=== PATIENT | female | born 1975 | race Two or more races ===

== ENCOUNTER 2024-06-11 20:10 | Emergency (ER) | payer MEDICAID, OTHER ==
[~2024-06-11] VITALS: Ht 157.5 cm; Wt 103.1 kg
[2024-06-11] MEDS: methylPREDNISolone SOD SUCC 125 MG/2 ML VL IM ONE (21:00)
[2024-06-11] MEDS ORDERED: NAP500T PO (21:36)
[2024-06-11 23:43] VITALS: BP 130/77; TEMP 97.7
[2024-06-11] MEDS: KETOROLAC TROMETH 30 MG/ML 1ML VIAL IM ONE (23:50)
[2024-06-12 00:11] VITALS: PULSE 76; RESP 16; O2SAT 93
== END 2024-06-12 00:14 | disposition home or self-care (01) ==
LOC: ER 20:10
DX: R60.0 Localized edema (principal); M79.672 Pain in left foot; M25.572 Pain in left ankle and joints of left foot; M79.652 Pain in left thigh; I10 Essential (primary) hypertension
CPT/HCPCS: 93971; 96372; 99285; J1885; J2919

== ENCOUNTER 2024-10-05 06:10 | Inpatient (IN) | payer MEDICAID ==
[2024-10-05] VITALS (7 sets, daily range): BP systolic 112–140; BP diastolic 61–81; PULSE 48–72; RESP 17–19; TEMP 97.7–98; O2SAT 92–96
[~2024-10-05] VITALS: Ht 157.5 cm; Wt 102.6 kg
[~2024-10-05 06:10] MED LIST: NAP500T PO
--- NOTE | 2024-10-05 06:37 | ECG ---
[facility] Test Date: 2024-10-05 Test Time: 06:17:52 Pat Name: BERNADETTE ZARATE Department: ed Room: [address] [place] [address] Gender: F Bag Printer: ed : [id number] Requested By: HOLLIS ROSS Order Number: [id number] Reading MD: Ron Christine Measurements Intervals [place] Rate: 47 P: 28 [place]: 130 QRS: 73 QRSD: 105 T: 44 QT: 486 QTc: 430 Interpretive Statements Sinus bradycardia Electronically Signed On 10-05-2024 13:17:51 PST by Ron Christine Please click the below link to view image of tracing.
--- NOTE | 2024-10-05 06:38 | ED.PDOC ---
History of Present Illness HPI Comments 48 year old female presents to the ED with a chief complaint of dizziness onset today at 03:00. Patient states she woke up experiencing dizziness as well as chest tightness, shortness of breath. She noticed dizziness worsens with taking deep breaths. PMHx of HTN, HLD. Patient denies abdominal pain, nausea, vomiting, diarrhea, dysuria, hematuria. No other symptoms or modifying factors present at this time. Time Seen by MD: 06:29 Reviewed Notes: Medications, Allergies Allergies: Coded Allergies: NO KNOWN ALLERGIES (Unverified , 06/11/24) Home Meds Active Scripts Naproxen (NAPROSYN TABLET) 500 Mg Tb, 1 TAB PO BID PRN, #60 TAB 1 Refill Prov:MARIAN GUERRA 06/11/24 Information Source: Patient Mode of Arrival: Ambulatory Severity: Moderate Timing: Hours Duration: Since onset Prehospital treatment: None Past Medical History PAST MEDICAL HISTORY: High Lipids, HTN Surgical History: Cholecystectomy LEGISLATIVE AIDE History: No Pertinent LEGISLATIVE AIDE History Family History Family History: Unknown Social History Smoker: Non-Smoker Alcohol: Denies ETOH Use Drugs: Denies Drug Use Lives In: Home Constitutional: denies: chills, diaphoresis, fatigue, fever, malaise, sweats, weakness, others EENTM: denies: blurred vision, double vision, ear bleeding, ear discharge, ear drainage, ear pain, ear ringing, eye pain, eye redness, hearing loss, mouth pain, mouth swelling, nasal discharge, nose bleeding, nose congestion, nose pain, photophobia, tearing, throat pain, throat swelling, voice changes, others Respiratory: reports: shortness of breath; denies: cough, hemoptysis, orthopnea, SOB at rest, SOB with excertion, stridor, wheezing, others Cardiovascular: reports: chest pain; denies: dizzy spells, diaphoresis, Dyspnea on exertion, edema, irregular heart beat, left arm pain, lightheadedness, pa lpitations, PND, syncope, others Gastrointestinal: denies: abdomen distended, abdominal pain, blood streaked bowels, constipated, diarrhea, dysphagia, difficulty swallowing, hematemesis, melena, nausea, poor appetite, poor fluid intake, rectal bleeding, rectal pain, vomiting, others Genitourinary: denies: abnormal vagina bleeding, burning, dyspareunia, dysuria, flank pain, frequency, hematuria, incontinence, pain, , vagina discharge, urgency, others Neurological: reports: dizziness; denies: fainting, headache, left sided numbness, left sided weakness, numbness, paresthesia, pre-existing deficit, right sided numbness, right sided weakness, seizure, speech problems, tingling, tremors, weakness, others Musculoskeletal: denies: back pain, gout, joint pain, joint swelling, muscle pain, muscle stiffness, neck pain, others Integumetry: denies: bruises, change in color, change in hair/nails, dryness, laceration, lesions, lumps, rash, wounds, others Allergic/Immunocompromised: denies: Difficulty Healing, Frequent Infections, Hives, Itching, others Hematologic/Lymphatic: denies: anemia, blood clots, easy bleeding, easy bruising, swollen glands, others Endocrine: denies: excessive hunger, excessive sweating, excessive thirst, excessive urination, flushing, intolerance to cold, intolerance to heat, unexplained weight gain, unexplained weight loss, others Psychiatric: denies: anxiety, bipolar disorder, depression, hopeless, panic disorder, schizophrenia, sleepless, suicidal, others All Other Systems: Reviewed and Negative Physical Exam General Appearance: No Apparent Distress, Normal HEENT: Normal ENT Inspection, Pharynx Normal, TMs Normal Neck: Full Range of Motion, Non-Tender, Normal, Normal Inspection Respiratory: Chest Non-Tender, Lungs Clear, No Accessory Muscle Use, No Respiratory Distress, Normal Breath Sounds Cardiovascular: No Edema, No JVD, No Murmur, No Gallop, Normal Peripheral Pulses, Regular Rate/Rhythm Breast Exam: Deferred Gastrointestinal: No Organomegaly, Non Tender, No Pulsatile Mass, Normal Bowel Sounds, Soft Genitalia: Deferred Pelvic: Deferred Rectal: Deferred Extremities: No calf tenderness, Normal capillary refill, Normal inspection, No rmal range of motion, Non-tender, No pedal edema Musculoskeletal : Apperance: Normal Neurologic: Alert, mail list librarian II-XII nml as Tested, No Motor Deficits, Normal Affect, Normal Mood, No Sensory Deficits Cerebellar Function: Normal Reflexes: Normal Skin: Dry, Normal Color, Warm Lymphatic: No Adenopathy Was a procedure done? Was a procedure done?: No EKG EKG : Pulse Rate (adult): 47 Cardiac Rhythm: SB (47) Block: None ST: Normal Comments sinus bradycardia with rate 47 Differential Dx Considerations may include: Differential diagnosis considered includes COVID-19, influenza, stroke, electrolyte abnormalities, anemia, UTI X-Ray, Labs, Meds, VS Vital Signs Date Time Temp Pulse Resp B/P (MAP) Pulse Ox O2 Delivery O2 Flow Rate FiO2 10/05/24 07:29 98.5 56 19 122/64 (83) 97 98.5 10/05/24 07:29 56 10/05/24 07:15 10/05/24 06:38 98.0 52 18 122/57 (78) 99 10/05/24 06:38 130 10/05/24 06:17 47 Lab Test 10/05/24 07:39 10/05/24 06:34 Range/Units Urine Color Light-yellow Yellow Urine Clarity Clear Clear Urine pH 5.5 5.0-9.0 Urine Specific [place] 1.013 1.001-1.035 Urine Protein Negative Negative Urine Ketones Negative Negative Urine Blood Trace H Negative /uL Urine Nitrite Negative Negative Urine Bilirubin Negative Negative Urine Urobilinogen Normal Negative mg/dL Urine Leukocyte Esterase Negative Negative /uL Urine RBC None seen 0 - 4 /hpf Urine Microscopic WBC 1 0-5 /HPF Urine Squamous Epithelial Cells Few <5 /hpf Urine Bacteria None seen None Seen /hpf Urine Glucose Normal Normal mg/dL Influenza Type A Antigen Negative Negative Influenza Type B Antigen Negative Negative White Blood Count 8.3 4.4-10.8 10^3/uL Red Blood Count 5.25 H 4.0-5.20 10^6/uL Hemoglobin 15.4 12.2-16.2 g/dL Hematocrit 46.3 H 36.0-46.0 % Mean Corpuscular Volume 88.3 80.0-100.0 fL Mean Corpuscular Hemoglobin 29.3 28.0-32.0 pg Mean Corpuscular Hemoglobin Concent 33.2 32.0-36.0 g/dL Red Cell Distribution Width 14.1 11.8-14.3 % Platelet Count 288 140-450 10^3/uL Mean Platelet Volume 9.2 6.9-10.8 fL Neutrophils (%) (Auto) 41.6 37.0-80.0 % Lymphocytes (%) (Auto) 43.9 10.0-50.0 % Monocytes (%) (Auto) 6.9 0.0-12.0 % Eosinophils (%) (Auto) 6.9 0.0-7.0 % Basophils (%) (Auto) 0.7 0.0-2.0 % Neutrophils # (Auto) 3.4 1.6-8.6 10 ^3/uL Lymphocytes # (Auto) 3.6 0.4-5.4 10 ^3/uL Monocytes # (Auto) 0.6 0-1.3 10 ^3/uL Eosinophils # (Auto) 0.6 0-0.8 10 ^3/uL Basophils # (Auto) 0.1 0-0.2 10 ^3/uL Nucleated Red Blood Cells 0.1 % Prothrombin Time 10.3 9.3-11.8 sec Prothrombin Time INR 0.97 0.9-1.15 Activated Partial Thromboplast Time 27.7 24.5-34.5 SEC D-Dimer, Quantitative 0.20 0.0-0.49 mg/L FEU Sodium Level 139 136-145 mmol/L Potassium Level 3.8 3.5-5.1 mmol/L Chloride Level 103 98-107 mmol/L Carbon Dioxide Level 26 20-31 mmol/L Anion Gap 10 5-15 Blood Urea Nitrogen 12 9-23 mg/dL Creatinine 0.63 0.550-1.02 mg/dL Glomerular Filtration Rate Calc 110 >90 mL/min BUN/Creatinine Ratio 19.0 10.0-20.0 Serum Glucose 106 74-106 mg/dL Calcium Level 9.7 8.7-10.4 mg/dL Magnesium Level 2.0 1.6-2.6 mg/dL Total Bilirubin 0.3 0.2-1.0 mg/dL Aspartate Amino Transferase (AST) 30 13-40 U/L Alanine Aminotransferase (ALT) 47 H 7-40 U/L Alkaline Phosphatase 85 46-116 U/L Troponin I High Sensitivity 4 </=34 ng/L B-Type Natriuretic Peptide 15.97 0-100 pg/mL Total Protein 6.5 5.7-8.2 g/dL Albumin 4.5 3.2-4.8 g/dL X-Ray, Labs, Meds, VS Comment This 44-year-old female presents secondary to dizziness and chest tightness with deep inspiration. Here, her workup was significant for a heart rate in the 40s. I am concerned the patient's dizziness/lightheadedness secondary to symptomatic bradycardia. The patient will be admitted for further workup management of her symptomatic bradycardia. Differential diagnosis considered includes COVID-19, influenza, stroke, electrolyte abnormalities, anemia, UTI Time of 1ST Reevaluation: 06:59 Reevaluation 1ST: Unchanged Patient Education/Counseling: Diagnosis, Treatment, Prognosis Family Education/Counseling: No Family Present Additional Information The following tests were ordered, and results were reviewed by me:EKG -X3 RAPID INFLUENZA A&B, I discussed treatment and results with medical personnel and patient Departure 1 Departure Time of Disposition: 08:37 Impression: Primary Impression: Chest pain Additional Impressions: Dizziness Bradycardia Disposition: 09 ADMITTED INPATIENT Condition: Fair Critical Care Note Critical Care Time?: No Stability Stability form required: No Heart Score Heart Score: Heart Score Response (Comments) Value History N/A 0 EKG N/A 0 Age N/A 0 Risk Factors N/A 0 Troponin N/A 0 Total 0 I personally scribed for HOLLIS ROSS MD ([email or web address]) on 10/05/24 at 06:38. Electronically submitted by Sobeida Maria ([email or web address]). I personally scribed for HOLLIS ROSS MD ([email or web address]) on 10/05/24 at 07:13. Electr onically submitted by Sobeida Maria ([email or web address]). I personally scribed for HOLLIS ROSS MD ([email or web address]) on 10/05/24 at 07:15. Electronically submitted by Sobeida Maria ([email or web address]). HOLLIS ROSS MD Oct 05, 2024 06:38
[2024-10-05 07:54] LABS: Urine Bacteria None Seen /hpf (None Seen)
[2024-10-05 07:55] LABS: Basophils # (auto) 0.1 10 ^3/uL (0-0.2); Basophils % (auto) 0.7 % (0.0-2.0); Eosinophils # (auto) 0.6 10 ^3/uL (0-0.8); Eosinophils % (auto) 6.9 % (0.0-7.0); Hematocrit 46.3 % (36.0-46.0); Hemoglobin 15.4 g/dL (12.2-16.2); Lymphocytes # (auto) 3.6 10 ^3/uL (0.4-5.4); Lymphocytes % (auto) 43.9 % (10.0-50.0); Mean Corpuscular Hemoglobin 29.3 pg (28.0-32.0); Mean Corpuscular Hgb Conc. 33.2 g/dL (32.0-36.0); Mean Corpuscular Volume 88.3 fL (80.0-100.0); Monocytes # (auto) 0.6 10 ^3/uL (0-1.3); Monocytes % (auto) 6.9 % (0.0-12.0); Neutrophils # (auto) 3.4 10 ^3/uL (1.6-8.6); Neutrophils % (auto) 41.6 % (37.0-80.0); Nucleated Red Blood Cells % 0.1 %; Platelet Count (auto) 288 10^3/uL (140-450); Red Blood Cells 5.25 10^6/uL (4.0-5.20); Red Cell Distribution Width 14.1 % (11.8-14.3); White Blood Cell 8.3 10^3/uL (4.4-10.8)
[2024-10-05 07:59] LABS: Urine Blood TRACE /uL (Negative); Urine Clarity Clear (Clear); Urine Color Light-Yellow (Yellow); Urine Protein, UAD Negative (Negative); Urine Specific Gravity 1.013 (1.001-1.035); Urine Squamous Epithelial Cell FEW /hpf (<5); Urine Urobilinogen Normal (Negative); Urine WBC 1 /HPF (0-5); Urine pH 5.5 (5.0-9.0)
[2024-10-05 08:04] LABS: Albumin 4.5 g/dL (3.2-4.8); Alkaline Phosphatase 85 U/L (46-116); Anion Gap 10 (5-15); Aspartate Aminotransferase 30 U/L (13-40); Blood Urea Nitrogen 12 mg/dL (9-23); Calcium 9.7 mg/dL (8.7-10.4); Carbon Dioxide 26 mmol/L (20-31); Chloride 103 mmol/L (98-107); Potassium 3.8 mmol/L (3.5-5.1); Sodium 139 mmol/L (136-145)
[2024-10-05 08:05] LABS: Total Protein 6.5 g/dL (5.7-8.2)
--- NOTE | 2024-10-05 08:05 | DVH ---
EXAM: XR Chest, 1 View CLINICAL INDICATION: chest pain TECHNIQUE: Frontal view of the chest. COMPARISON: None FINDINGS: LUNGS AND PLEURAL SPACES: Unremarkable. No consolidation. No pneumothorax. HEART: Unremarkable. No cardiomegaly. MEDIASTINUM: Unremarkable. Normal mediastinal contour. BONES/JOINTS: Unremarkable. No acute fracture. OTHER FINDINGS: . None. . IMPRESSION: No acute cardiopulmonary process.
[2024-10-05 08:06] LABS: Alanine Aminotransferase 47 U/L (7-40); Bilirubin, Total 0.3 mg/dL (0.2-1.0); Glucose 106 mg/dL (74-106)
[2024-10-05 08:08] LABS: INR 0.97 (0.9-1.15); Partial Thromboplastin Time 27.7 SEC (24.5-34.5); Prothrombin Time 10.3 sec (9.3-11.8)
[2024-10-05 08:16] LABS: Rapid Influenza A Negative (Negative); Rapid Influenza B Negative (Negative)
[2024-10-05] MEDS ORDERED: ONDANSETRON HCL 4 MG/2 ML VIAL IV PRN (11:15)
[2024-10-05] MEDS ORDERED: NITROGLYCERIN 0.4 MG SL TAB SL PRN (11:15)
[2024-10-05] MEDS ORDERED: MORPHINE SULFATE INJ 2 MG/ml SYRG IV PRN (11:15)
--- NOTE | 2024-10-05 11:15 | DVHHP2 ---
History of Present Illness Reason for Visit: Chest tightness History of Present Illness Itzel Feng is a 48-year-old female with past medical history of hypertension, hyperlipidemia, uterus ablation, and cholecystectomy who presents to the ED for chest tightness and dizziness with associated shortness of breath since 3:00 a.m. this morning. Patient reports that she was sleeping in bed and suddenly felt midsternal chest tightness that does not radiate anywhere. Patient reports that this morning she took her blood pressure read her pulse a 48 and decided to take all her medications which includes beta-blockers and antihypertensives. Patient reports that after she took the medications her heart rate was 51. Patient denies any abdominal pain, nausea, vomiting, diarrhea, fever, chills cousin recent sick contacts, and recent injury. Patient reports that she was never informed by her primary to hold her medications if her heart rate or blood pressure was below a certain parameter. Cardiovascular: HTN, hyperipidemia Past Surgical History: Cholecystectomy, Other (Uterine ablation) Family History: Hyperlipidemia, Hypertension, Other (Mom with hypertension, hyperlipidemia, and pacemaker) Smoke: No ALCOHOL: none Drugs: None Lives: with Family Domestic Violence: Neg Review of Systems Constitutional: Yes: Other (Dizziness); No: Fever, Chills, Sweats, Weakness, Malaise Eyes: No: Pain, Vision change, Conjunctivae inflammation, Eyelid inflammation, Other, Redness ENT: No: Ear pain, Ear discharge, Nose pain, Nose discharge, Nose congestion, Mouth pain, Mouth swelling, Throat pain, Throat swelling, Other Respiratory: Shortness of breath; No: Cough, Dry, SOB with excertion, Wheezing, Hemoptysis, Pleuritic Pain, Sputum, Wheezing, Other Cardiovascular: Chest Pain; No: Palpitations, Orthopnea, Paroxysmal Noc. Dyspnea, Edema, Lt Headedness, Other Gastrointestinal: No: Nausea, Vomiting, Abdominal Pain, Diarrhea, Constipation, Melena, Hematochezia, Other Genitourinary: No Dysuria, No Frequency, No Incontinence, No Hematuria, No Retention, No Other Musculoskeletal: No: other, neck pain, shoulder pain, arm pain, back pain, hand pain, leg pain, foot pain Skin: No: Rash, Lesions, Jaundice, Bruising, Other Neurological: No: Weakness, Numbness, Incoordination, Change in speech, Confusion, Seizures, Other Allergies: Coded Allergies: NO KNOWN ALLERGIES (Unverified , 06/11/24) Medications Current Medications Medications Dose Ordered Sig/[place] Route Start Time Stop Time Status Last Admin Dose Admin Ondansetron HCl 4 mg Q4HP PRN IV 10/05/24 11:15 UNV Acetaminophen 650 mg Q6HP PRN PO 10/05/24 11:15 UNV Nitroglycerin 0.4 mg Q5MINP PRN SL 10/05/24 11:15 UNV Morphine Sulfate 2 mg Q30M PRN IV 10/05/24 11:15 UNV Exam Vital Signs Vital Signs Date Time Temp Pulse Resp B/P (MAP) Pulse Ox O2 Delivery O2 Flow Rate FiO2 10/05/24 09:57 51 17 134/62 (86) 99 10/05/24 07:29 98.5 98.5 General Appearance: Alert, Oriented X3, Cooperative, No acute distress HEENT: Atraumatic, PERRLA, EOMI, Mucous membr. moist/pink Respiratory: Clear to auscultation, Normal air movement Cardiovascular: Normal S1, Normal S2, No murmurs Abdominal: Normal bowel sounds, Soft, No tenderness, No hepatospenomegaly, No masses Extremities: No clubbing, No cyanosis, No edema, Normal pulses, No tenderness/swelling Skin: No rashes, No breakdown, No significant lesion Neuro: Normal gait, Normal speech, Strength at 5/5 X4 ext, Normal tone, Sensation intact Psych/Mental Status: Mental status NL, Mood NL Labs/Xrays Labs Test 10/05/24 07:39 10/05/24 06:34 Range/Units Urine Color Light-yellow Yellow Urine Clarity Clear Clear Urine pH 5.5 5.0-9.0 Urine Specific [place] 1.013 1.001-1.035 Urine Protein Negative Negative Urine Ketones Negative Negative Urine Blood Trace H Negative /uL Urine Nitrite Negative Negative Urine Bilirubin Negative Negative Urine Urobilinogen Normal Negative mg/dL Urine Leukocyte Esterase Negative Negative /uL Urine RBC None seen 0 - 4 /hpf Urine Microscopic WBC 1 0-5 /HPF Urine Squamous Epithelial Cells Few <5 /hpf Urine Bacteria None seen None Seen /hpf Urine Glucose Normal Normal mg/dL Influenza Type A Antigen Negative Negative Influenza Type B Antigen Negative Negative White Blood Count 8.3 4.4-10.8 10^3/uL Red Blood Count 5.25 H 4.0-5.20 10^6/uL Hemoglobin 15.4 12.2-16.2 g/dL Hematocrit 46.3 H 36.0-46.0 % Mean Corpuscular Volume 88.3 80.0-100.0 fL Mean Corpuscular Hemoglobin 29.3 28.0-32.0 pg Mean Corpuscular Hemoglobin Concent 33.2 32.0-36.0 g/dL Red Cell Distribution Width 14.1 11.8-14.3 % Platelet Count 288 140-450 10^3/uL Mean Platelet Volume 9.2 6.9-10.8 fL Neutrophils (%) (Auto) 41.6 37.0-80.0 % Lymphocytes (%) (Auto) 43.9 10.0-50.0 % Monocytes (%) (Auto) 6.9 0.0-12.0 % Eosinophils (%) (Auto) 6.9 0.0-7.0 % Basophils (%) (Auto) 0.7 0.0-2.0 % Neutrophils # (Auto) 3.4 1.6-8.6 10 ^3/uL Lymphocytes # (Auto) 3.6 0.4-5.4 10 ^3/uL Monocytes # (Auto) 0.6 0-1.3 10 ^3/uL Eosinophils # (Auto) 0.6 0-0.8 10 ^3/uL Basophils # (Auto) 0.1 0-0.2 10 ^3/uL Nucleated Red Blood Cells 0.1 % Prothrombin Time 10.3 9.3-11.8 sec Prothrombin Time INR 0.97 0.9-1.15 Activated Partial Thromboplast Time 27.7 24.5-34.5 SEC D-Dimer, Quantitative 0.20 0.0-0.49 mg/L FEU Sodium Level 139 136-145 mmol/L Potassium Level 3.8 3.5-5.1 mmol/L Chloride Level 103 98-107 mmol/L Carbon Dioxide Level 26 20-31 mmol/L Anion Gap 10 5-15 Blood Urea Nitrogen 12 9-23 mg/dL Creatinine 0.63 0.550-1.02 mg/dL Glomerular Filtration Rate Calc 110 >90 mL/min BUN/Creatinine Ratio 19.0 10.0-20.0 Serum Glucose 106 74-106 mg/dL Calcium Level 9.7 8.7-10.4 mg/dL Magnesium Level 2.0 1.6-2.6 mg/dL Total Bilirubin 0.3 0.2-1.0 mg/dL Aspartate Amino Transferase (AST) 30 13-40 U/L Alanine Aminotransferase (ALT) 47 H 7-40 U/L Alkaline Phosphatase 85 46-116 U/L Troponin I High Sensitivity 4 </=34 ng/L B-Type Natriuretic Peptide 15.97 0-100 pg/mL Total Protein 6.5 5.7-8.2 g/dL Albumin 4.5 3.2-4.8 g/dL EXAM: XR Chest, 1 View CLINICAL INDICATION: chest pain TECHNIQUE: Frontal view of the chest. COMPARISON: None FINDINGS: LUNGS AND PLEURAL SPACES: Unremarkable. No consolidation. No pneumothorax. HEART: Unremarkable. No cardiomegaly. MEDIASTINUM: Unremarkable. Normal mediastinal contour. BONES/JOINTS: Unremarkable. No acute fracture. OTHER FINDINGS: . None. . IMPRESSION: No acute cardiopulmonary process. Assessment/Plan Assessment/Plan Assessment/Plan: Chest tightness with bradycardia Labs UA EKG Troponin negative BNP D-dimer PT/PTT Mag level Chest x-ray noted Flu negative TSH Lipid panel UDS Hemoglobin A1c Echo ordered A.m. labs Cardiology consult Chronic hypertension Continue home medications Chronic hyperlipidemia Continue home medications FEN/PPX cardiac diet hl DVT prophylaxis not indicated patient ambulating PUD prophylaxis -continue home medication, famotidine home medications reconciled discussed plan of care with patient and nurse Admit to tele Plan discussed with: Patient My Orders Orders - JADE COOK [employer]MICAL CELL CHANGER Procedure Category Date Status Time * Cardiology Consult CONS 10/05/24 Transmitted 11:03 Admit ADMIT 10/05/24 Transmitted 11:03 Allergies LIDYA 10/05/24 In Process 11:03 Code Status CODE 10/05/24 Transmitted 11:03 Ondansetron Hcl PHA 10/05/24 Logged (Zofran) 11:15 Complete Blood Count LAB 10/06/24 Verified 04:00 Comprehensive LAB 10/06/24 Verified Metabolic Panel 04:00 Cardiac DIET 10/05/24 Transmitted Diet-2gna,Lofat,Lochol Lunch Acetaminophen Tablet PHA 10/05/24 Logged (Tylenol Tablet) 11:15 Nitroglycerin PHA 10/05/24 Logged Sublingual (Ntrostat 11:15 Morphine Sulfate PHA 10/05/24 Logged Injection 11:15 Stat Ekg For Chest [facility] 10/05/24 In Process Pain 11:03 Notify Of Changes [facility] 10/05/24 In Process From Base 11:03 Owner Professional Engineer For [facility] 10/05/24 In Process 24 Hours 11:03 Emergency Dysrhythmia [facility] 10/05/24 In Process Protocol 11:03 Rhythm Strips Once [facility] 10/05/24 In Process Every Shift 11:03 Oxygen By Nasal RT 10/05/24 Transmitted Cannula 11:03 * Cardiology Consult CONS 10/05/24 Transmitted 11:06 Date of Service: Oct 05, 2024 Billing Provider: JADE COOK Common Visit Codes: [id number] INP/OBS CARE (HIGH) JADE COOK Oct 05, 2024 11:15
[2024-10-05 12:18] LABS: Amphetamine Screen, Urine Neg (NEGATIVE); Barbiturate Scree,Urine Neg (NEGATIVE); Benzodiazephine Screen, Urine Neg (NEGATIVE); Cannabinoid Screen, Urine Neg (NEGATIVE); Cocaine Screen, Urine Neg (NEGATIVE); Opiate Scree,Urine Neg (NEGATIVE); Phencyclidine Screen, Urine Neg (NEGATIVE)
[2024-10-05] MEDS ORDERED: HYDR25TA5 (12:44)
[2024-10-05] MEDS ORDERED: ATEN50TA PO (12:44)
[2024-10-05] MEDS ORDERED: ATOR20TA50 (12:44)
[2024-10-05] MEDS ORDERED: TRAZ-227 PO (12:44)
[2024-10-05] MEDS ORDERED: OXYB5TAB14 PO (12:44)
[2024-10-05] MEDS ORDERED: FAMO-12 PO (12:44)
--- NOTE | 2024-10-05 17:01 | DVHSR ---
APPROVED REPORT EXAM: Two-dimensional and M-mode echocardiogram with Doppler and color Doppler. Blood Pressure: 134/62 mmHg INDICATION chest tightness RISK FACTORS Obesity: Height: 5'2, Weight: 221 DIMENSIONS LVDd3.7 (3.8-5.7cm)LA (2D)4.3 (1.9-4.0cm)Aortic Root3.1 (2.0-3.7cm) LVDs2.7 (2.5-4.0cm)LA (MM) (1.9-4.0cm)Aortic Cusp Exc2.0 (1.5-2.0cm) EF (%) 55.0 (55-70%)Rt. Atrium3.6 (1.9-4.0cm)Asc. Aorta2.8 cm IVSd1.2 (0.7-1.1cm)RV (D)3.8 (1.8-2.4cm) PWd1.0 (0.7-1.1cm) Mitral Valve MitralMitral Stenosis E wave0.95m/sMV Mean GR.mmHg A wave0.91m/sMV Peak GR.54mmHg E/A ratio1.02D MVAcm2 DECEL [id number] 1/2 Timems Aortic Valve Aortic ValveAortic Stenosis V10.93m/Slade Mean GR.3mmHg V21.19m/Slade Peak GR.6mmHg LVOT Diameter2.6 (1.8-2.4cm)Doppler AVA4.15cm2 Pulmonic Valve V20.78m/s Tricuspid Valve TR Velocity2.19m/s [id number] LEFT VENTRICLE The left ventricle is normal size. There is mild asymmetric left ventricular hypertrophy. Left ventricle systolic function is borderline, LVEF is 50-55%. Normal wall motion. RIGHT VENTRICLE The right ventricle is normal size. The right ventricular systolic function is normal. ATRIA The left atrium is mildly dilated. The right atrium size is normal. MITRAL VALVE The mitral valve is grossly normal. There is no mitral valve regurgitation noted. PULMONIC VALVE The pulmonic valve is not well visualized. There is no pulmonic valvular regurgitation. TRICUSPID VALVE The tricuspid valve is grossly normal. There is mild tricuspid regurgitation. AORTIC VALVE The aortic valve is trileaflet. No aortic regurgitation is present. GREAT VESSELS The aortic root is normal size. PERICARDIAL EFFUSION No evidence of pericardial effusion. Conclusion The left ventricle is normal size. There is mild asymmetric left ventricular hypertrophy. Left ventri leigha systolic function is borderline, LVEF is 50-55%. The right ventricular systolic function is normal. The left atrium is mildly dilated. No significant valvular abnormalities. No evidence of pericardial effusion.
--- NOTE | 2024-10-05 17:45 | DVHINCON2 ---
Date Seen: Oct 05, 2024 Referring Physician ELEANOR Moralez Reason for Consultation Bradycardia History of Present Illness This is a 48-year-old female patient who presents to the emergency room with chief complaint of bradycardia and chest pain. Patient reports that at approximately 3:00 a.m. this morning she woke up feeling dizzy. She decided to check her blood pressure which she noticed was in normal range but happened to notice that her heart rate was sustaining in the low 50s. She reports at this time she developed chest pain which she describes as pressure-like in nature, substernal, and nonradiating. She denies any associated symptoms. She denies any aggravating or alleviating factors. She decided to come to the emergency room for further evaluation. At time of assessment, she denies any chest pain. Initial twelve lead electrocardiogram reveals sinus bradycardia. Significant past medical history includes hypertension, hyperlipidemia anxiety, and obesity. The patient denies following up with Cardiology in the outpatient setting. She does mentioned that she takes atenolol at home for blood pressure and took a dose this morning even after noticing that her heart rate was in the 50s. Of note, the patient does report a significant family history mentioning that her brother had a myocardial infarction at 45 years old. Past Medical History Past medical history reviewed. No other significant than mentioned above. Past Surgical History Cholecystectomy Family History: Diabetes mellitus G8 MOTHER FH: breast cancer G8 MOTHER FH: skin cancer G8 MOTHER FH: thyroid condition Hypertension G8 MOTHER Osteoarthritis G8 MOTHER Thyroid disease G8 MOTHER Family History Family history reviewed. Social History Denies the use of tobacco, alcohol or illicit drugs. Allergies: Coded Allergies: NO KNOWN ALLERGIES (Unverified , 06/11/24) Home Meds Active Scripts Naproxen (NAPROSYN TABLET) 500 Mg Tb, 1 TAB PO BID PRN, #60 TAB 1 Refill Prov:MARIAN GUERRA 06/11/24 Reported Medications Trazodone Hcl (Trazodone Hcl) 50 Mg Tab, 1 TAB PO 10/05/24 Atorvastatin Calcium (ATORVASTATIN CALCIUM) 20 Mg Tab, 1 DAILY 10/05/24 Famotidine (Famotidine) 20 Mg Tab, 1 TAB PO BID 10/05/24 Hctz (Hydrochlorothiazide) 25 Mg Tab, 1 DAILY 10/05/24 Atenolol (Atenolol) 50 Mg Tab, 1 TAB PO DAILY 10/05/24 Oxybutynin Chloride (Oxybutynin Chloride) 5 Mg Tab, 5 MG PO DAILY 10/05/24 Home Meds Home medications reviewed. Current Medications Current Medications Medications (Trade) Dose Ordered Sig/Salvador Route PRN Reason Start Time Stop Time Status Last Admin Ondansetron HCl (Zofran) 4 mg Q4HP PRN IV NAUSEA / VOMITING 10/05/24 11:15 Acetaminophen (Tylenol Tablet) 650 mg Q6HP PRN PO PAIN SCALE 1-3 OR TEMP>100.4 10/05/24 11:15 Nitroglycerin (Ntrostat Sublingual) 0.4 mg Q5MINP PRN SL FOR CHEST PAIN 10/05/24 11:15 Morphine Sulfate 2 mg Q30M PRN IV FOR CHEST PAIN 10/05/24 11:15 Review of Systems Constitutional: No symptom reported Ears, Nose, & Throat: No symptom reported Eyes: No symptom reported Neurological: Dizziness Pulmonary/Respiratory: No symptoms reported Cardiovascular: Chest pain Gastrointestinal: No symptom reported Genitourinary: No symptom reported Musculoskeletal: No symptom reported Skin: No symptom reported Psychiatric: No symptom reported Endocrine: No symptom reported Hematologic/Lymphatic: No symptom reported Vital Signs Vital Signs Date Time Temp Pulse Resp B/P (MAP) Pulse Ox O2 Delivery O2 Flow Rate FiO2 10/05/24 12:40 48 17 96 Room Air* 0 21 10/05/24 11:32 98.2 123/84 (97) 98.2 Physical Exam General Appearance: Cooperative. Well-developed. Well-nourished. No acute distress. Pulmonary/Respiratory: Clear, bilateral breaths sounds. Cardiovascular/Chest: Regular rate and rhythm. Peripheral Pulses: 2+ Radial (R). 2+ Radial (L). 2+ Pedal (R). 2+ Pedal (L) Abdominal Exam: Normal bowel sounds. Ankle Exam: Negative ankle edema Lower extremities: Negative lower extremity edema Neuro/Mental Status: A/OX4, coherent. Thoughts/Psych: Normal thought pattern. Appropriate mood and affect. Good judgment and insight. Appearance: No acute distress. Skin Exam: Normal inspection. Normal color. Warm and dry. Labs/Diagnostic Data Labs Test 10/05/24 08:05 10/05/24 07:39 10/05/24 06:34 Range/Units Urine Color Light-yellow Yellow Urine Clarity Clear Clear Urine pH 5.5 5.0-9.0 Urine Specific [place] 1.013 1.001-1.035 Urine Protein Negative Negative Urine Ketones Negative Negative Urine Blood Trace H Negative /uL Urine Nitrite Negative Negative Urine Bilirubin Negative Negative Urine Urobilinogen Normal Negative mg/dL Urine Leukocyte Esterase Negative Negative /uL Urine RBC None seen 0 - 4 /hpf Urine Microscopic WBC 1 0-5 /HPF Urine Squamous Epithelial Cells Few <5 /hpf Urine Bacteria None seen None Seen /hpf Urine Glucose Normal Normal mg/dL Urine Opiates Screen Neg NEGATIVE Urine Fentanyl Screen Neg NEGATIVE Urine Barbiturates Screen Neg NEGATIVE Urine Phencyclidine Screen Neg NEGATIVE Urine Amphetamines Screen Neg NEGATIVE Urine Benzodiazepines Screen Neg NEGATIVE Urine Cocaine Screen Neg NEGATIVE Urine Cannabinoids Screen Neg NEGATIVE Influenza Type A Antigen Negative Negative Influenza Type B Antigen Negative Negative White Blood Count 8.3 4.4-10.8 10^3/uL Red Blood Count 5.25 H 4.0-5.20 10^6/uL Hemoglobin 15.4 12.2-16.2 g/dL Hematocrit 46.3 H 36.0-46.0 % Mean Corpuscular Volume 88.3 80.0-100.0 fL Mean Corpuscular Hemoglobin 29.3 28.0-32.0 pg Mean Corpuscular Hemoglobin Concent 33.2 32.0-36.0 g/dL Red Cell Distribution Width 14.1 11.8-14.3 % Platelet Count 288 140-450 10^3/uL Mean Platelet Volume 9.2 6.9-10.8 fL Neutrophils (%) (Auto) 41.6 37.0-80.0 % Lymphocytes (%) (Auto) 43.9 10.0-50.0 % Monocytes (%) (Auto) 6.9 0.0-12.0 % Eosinophils (%) (Auto) 6.9 0.0-7.0 % Basophils (%) (Auto) 0.7 0.0-2.0 % Neutrophils # (Auto) 3.4 1.6-8.6 10 ^3/uL Lymphocytes # (Auto) 3.6 0.4-5.4 10 ^3/uL Monocytes # (Auto) 0.6 0-1.3 10 ^3/uL Eosinophils # (Auto) 0.6 0-0.8 10 ^3/uL Basophils # (Auto) 0.1 0-0.2 10 ^3/uL Nucleated Red Blood Cells 0.1 % Prothrombin Time 10.3 9.3-11.8 sec Prothrombin Time INR 0.97 0.9-1.15 Activated Partial Thromboplast Time 27.7 24.5-34.5 SEC D-Dimer, Quantitative 0.20 0.0-0.49 mg/L FEU Sodium Level 139 136-145 mmol/L Potassium Level 3.8 3.5-5.1 mmol/L Chloride Level 103 98-107 mmol/L Carbon Dioxide Level 26 20-31 mmol/L Anion Gap 10 5-15 Blood Urea Nitrogen 12 9-23 mg/dL Creatinine 0.63 0.550-1.02 mg/dL Glomerular Filtration Rate Calc 110 >90 mL/min BUN/Creatinine Ratio 19.0 10.0-20.0 Serum Glucose 106 74-106 mg/dL Hemoglobin A1c 5.9 H <5.7 % A1C Calcium Level 9.7 8.7-10.4 mg/dL Magnesium Level 2.0 1.6-2.6 mg/dL Total Bilirubin 0.3 0.2-1.0 mg/dL Aspartate Amino Transferase (AST) 30 13-40 U/L Alanine Aminotransferase (ALT) 47 H 7-40 U/L Alkaline Phosphatase 85 46-116 U/L Troponin I High Sensitivity 4 </=34 ng/L B-Type Natriuretic Peptide 15.97 0-100 pg/mL Total Protein 6.5 5.7-8.2 g/dL Albumin 4.5 3.2-4.8 g/dL Thyroid Stimulating Hormone (TSH) 2.93 0.55-4.78 uIU/mL Assessment Chest pain, rule out coronary ischemia Sinus bradycardia, likely medication induced Hypertension Hyperlipidemia Prediabetes Anxiety Obesity Plan/Recommendation We will continue with the following plan/recommendations (Dr. Bella): * Echocardiogram reveals EF 50-55% * Discontinue beta-celestino; avoid AV denis blocking agents * BP control * Lipid-lowering agent * Cardiac surveillance * Nuclear stress test Patient seen and examined in the ER holding area with . Given the mj patricia's significant family history and clinical presentation, we will schedule the patient for a nuclear stress test at first availability. In the meantime, avoid all AV denis blocking agents. Thank you for allowing us to care for this patient. Please call with any questions or concerns. Critical care time spent: 40 minutes This medical document was created using an electronic medical record system with voice recognition software and computerized dictation system. Although this document has been carefully reviewed, there might still be some phonetic and typographical errors. Occasional wrong-word or ``sound-alike substitutions may have occurred due to the inherent limitations of voice recognition software. These areas are purely typographical due to imperfections of the software programs and do not reflect any compromise in the patient's medical care. Please read the chart carefully and recognize, using context, where these substitutions have occurred. Plan discussed with: Patient NYHA Physical activity limitations: NA Date of Service: Oct 05, 2024 Billing Provider: AQUILINO MCCOY Cardiology Common Codes: [id number] INP/OBS CARE (High) Cardiology Consultation Codes: [id number] CONSULT <45MIN AQUILINO MCCOY Oct 05, 2024 17:45
[2024-10-05] MEDS: ATORVASTATIN 20 MG TAB PO SCH (21:11)
[2024-10-06] VITALS (8 sets, daily range): BP systolic 110–143; BP diastolic 52–82; PULSE 52–82; RESP 17–18; TEMP 97.7–98.2; O2SAT 91–95
[2024-10-06 06:14] LABS: Basophils # (auto) 0.1 10 ^3/uL (0-0.2); Basophils % (auto) 0.7 % (0.0-2.0); Eosinophils # (auto) 0.3 10 ^3/uL (0-0.8); Eosinophils % (auto) 4.4 % (0.0-7.0); Hematocrit 43.6 % (36.0-46.0); Lymphocytes # (auto) 2.6 10 ^3/uL (0.4-5.4); Mean Corpuscular Hemoglobin 29.8 pg (28.0-32.0); Mean Corpuscular Hgb Conc. 34.3 g/dL (32.0-36.0); Mean Corpuscular Volume 86.9 fL (80.0-100.0); Monocytes # (auto) 0.5 10 ^3/uL (0-1.3); Monocytes % (auto) 6.9 % (0.0-12.0); Neutrophils # (auto) 4.3 10 ^3/uL (1.6-8.6); Nucleated Red Blood Cells % 0.1 %; Platelet Count (auto) 279 10^3/uL (140-450); Red Blood Cells 5.02 10^6/uL (4.0-5.20); White Blood Cell 7.8 10^3/uL (4.4-10.8)
[2024-10-06 06:49] LABS: Albumin 4.1 g/dL (3.2-4.8); Alkaline Phosphatase 67 U/L (46-116); Anion Gap 10 (5-15); Aspartate Aminotransferase 31 U/L (13-40); BUN/Creatinine Ratio 16.4 (10.0-20.0); Blood Urea Nitrogen 11 mg/dL (9-23); Calcium 9.9 mg/dL (8.7-10.4); Carbon Dioxide 27 mmol/L (20-31); Chloride 105 mmol/L (98-107); Glucose 100 mg/dL (74-106); Sodium 142 mmol/L (136-145)
[2024-10-06 06:50] LABS: Bilirubin, Total 0.4 mg/dL (0.2-1.0); Total Protein 6.5 g/dL (5.7-8.2)
[2024-10-06 06:52] LABS: Alanine Aminotransferase 44 U/L (7-40); Potassium 3.4 mmol/L (3.5-5.1)
[2024-10-06] MEDS: hydroCHLOROthiazide 25 MG TAB PO SCH (09:42)
--- NOTE | 2024-10-06 16:41 | DVHPN2 ---
Subjective I am assuming the care of the patient from today onwards. This is a 48-year-old female with a known history of hypertension, dyslipidemia history the has been dizziness order bradycardia and to 50s. Patient did mention that she takes atenolol at home. Changes from previous H/P or p: No Changes Eyes: No Pain, No Vision change, No Conjunctivae inflammation, No Eyelid inflammation, No Other, No Redness ENT: No Ear pain, No Ear discharge, No Nose pain, No Nose discharge, No Nose congestion, No Mouth pain, No Mouth swelling, No Throat pain, No Throat swelling, No Other Cardiovascular: Chest Pain; No Palpitations, No Orthopnea, No Paroxysmal Noc. Dyspnea, No Edema, No Lt Headedness, No Other Respiratory: No Cough, No Dry; Shortness of breath; No SOB with excertion, No Wheezing, No Hemoptysis, No Pleuritic Pain, No Sputum, No Other Gastrointestinal: No Nausea, No Vomiting, No Abdominal Pain, No Diarrhea, No Constipation, No Melena, No Hematochezia, No Other Genitourinary: No Dysuria, No Frequency, No Incontinence, No Hematuria, No Retention, No Other Musculoskeletal: No other, No neck pain, No shoulder pain, No arm pain, No back pain, No hand pain, No leg pain, No foot pain Skin: No Rash, No Lesions, No Jaundice, No Bruising, No Other Objective Vitals Vital Signs Date Time Temp Pulse Resp B/P (MAP) Pulse Ox O2 Delivery O2 Flow Rate FiO2 10/06/24 13:00 98.0 67 18 143/80 (101) 91 98.0 10/06/24 07:37 Room Air* 0 21 Intake/Output Intake and Output 10/06/24 07:00 Intake Total 540 ml Output Total 1 ml Balance 539 ml Intake Oral 540 ml Output Urine Total 1 ml Exam HEENT pupils are reactive Neck is supple CVS S1-S2 regular rate and rhythm Respiratory bilateral clear GI positive bowel sounds Extremity no 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5 g/dL (5.7-8.2) LFT Test 10/06/24 05:10 Alanine Aminotransferase (ALT) 44 U/L (7-40) H Alkaline Phosphatase 67 U/L (46-116) Aspartate Amino Transferase (AST) 31 U/L (13-40) Total Bilirubin 0.4 mg/dL (0.2-1.0) Urinalysis Test 10/05/24 07:39 Urine Color Light-yellow (Yellow) Urine Clarity Clear (Clear) Urine pH 5.5 (5.0-9.0) Urine Specific [place] 1.013 (1.001-1.035) Urine Protein Negative (Negative) Urine Ketones Negative (Negative) Urine Blood Trace /uL (Negative) H Urine Nitrite Negative (Negative) Urine Bilirubin Negative (Negative) Urine Urobilinogen Normal mg/dL (Negative) Urine Leukocyte Esterase Negative /uL (Negative) Urine RBC None seen /hpf (0 - 4) Urine Microscopic WBC 1 /HPF (0-5) Urine Squamous Epithelial Cells Few /hpf (<5) Urine Bacteria None seen /hpf (None Seen) Urine Glucose Normal mg/dL (Normal) Assessment/Plan Assessment/Plan 48-year-old female with a known history of hypertension, dyslipidemia DC planning to hospice chest tightness and bradycardia found to have 1. Symptomatic bradycardia suspected secondary to beta-celestino 2. Hypertension 3. Dyslipidemia -hold AV denis agents, cardiology consultation, patient was scheduled for stress test. Plan discussed with: Patient Date of Service: Oct 06, 2024 Billing Provider: ETHAN WILKES MD Common Visit Codes: [id number] INP/OBS CARE(MOD) ETHAN WILKES MD Oct 06, 2024 16:41
--- NOTE | 2024-10-06 18:59 | DVHPN2 ---
Consult Progress Note Subjective Other Systems: Denies chest pain In normal sinus rhythm at time of assessment Objective vital signs Vital Sign Date Time Temp Pulse Resp B/P (MAP) Pulse Ox O2 Delivery O2 Flow Rate FiO2 10/06/24 17:00 98.2 76 18 139/82 (101) 94 98.2 10/06/24 07:37 Room Air* 0 21 Total Intake and Output 10/05/24 10/05/24 10/06/24 15:00 23:00 07:00 Intake Total 380 ml 160 ml Output Total 1 ml Balance 380 ml 159 ml medications Current Medications Medications Dose Ordered Sig/Salvador Route Start Time Stop Time Status Last Admin Dose Admin Ondansetron HCl 4 mg Q4HP PRN IV 10/05/24 11:15 Acetaminophen 650 mg Q6HP PRN PO 10/05/24 11:15 Nitroglycerin 0.4 mg Q5MINP PRN SL 10/05/24 11:15 Morphine Sulfate 2 mg Q30M PRN IV 10/05/24 11:15 Atorvastatin Calcium 20 mg HS PO 10/05/24 22:00 10/05/24 21:11 20 MG Hydrochlorothiazide 25 mg DAILY PO 10/06/24 10:00 Examination: GENERAL:Normal, LUNGS:Normal, CVS:Normal, NEURO:Normal laboratory and microbiology Laboratory Tests 10/06/24 05:10 Test 10/06/24 05:10 Range/Units Serum Glucose 100 74-106 mg/dL Problem List/Assessment/Plan Problem List/Assessment/Plan Chest pain, rule out coronary ischemia Sinus bradycardia, likely medication induced Hypertension Hyperlipidemia Prediabetes Anxiety Obesity Plan/Recommendation (Dr. Bella): * Echocardiogram reveals EF 50-55% * Discontinue beta-celestino; avoid AV denis blocking agents * BP control * Lipid-lowering agent * Cardiac surveillance * Nuclear stress test Patient seen and examined in the ER holding area with . Given the patient's significant family history and clinical presentation, we will schedule the patient for a nuclear stress test at first availability. In the meantime, avoid all AV denis blocking agents. Thank you for allowing us to care for this patient. Please call with any questions or concerns. This medical document was created using an electronic medical record system with voice recognition software and computerized dictation system. Although this document has been carefully reviewed, there might still be some phonetic and typographical errors. Occasional wrong-word or ``sound-alike substitutions may have occurred due to the inherent limitations of voice recognition software. These areas are purely typographical due to imperfections of the software programs and do not reflect any compromise in the patient's medical care. Please read the chart carefully and recognize, using context, where these substitutions have occurred. Plan discussed with: Patient Date of Service: Oct 06, 2024 Billing Provider: AQUILINO MCCOY Common Visit Codes: [id number] INP/OBS CARE(HIGH) AQUILINO MCCOY Oct 06, 2024 18:59
[2024-10-07] VITALS (7 sets, daily range): BP systolic 101–135; BP diastolic 58–86; PULSE 62–79; RESP 17–18; TEMP 97.4–97.9; O2SAT 92–95
--- NOTE | 2024-10-07 16:01 | DVHPN2 ---
Subjective This is a 48-year-old female with a known history of hypertension, dyslipidemia history the has been dizziness order bradycardia and to 50s. Patient did mention that she takes atenolol at home. Changes from previous H/P or p: No Changes Eyes: No Pain, No Vision change, No Conjunctivae inflammation, No Eyelid inflammation, No Other, No Redness ENT: No Ear pain, No Ear discharge, No Nose pain, No Nose discharge, No Nose congestion, No Mouth pain, No Mouth swelling, No Throat pain, No Throat swelling, No Other Cardiovascular: Chest Pain; No Palpitations, No Orthopnea, No Paroxysmal Noc. Dyspnea, No Edema, No Lt Headedness, No Other Respiratory: No Cough, No Dry; Shortness of breath; No SOB with excertion, No Wheezing, No Hemoptysis, No Pleuritic Pain, No Sputum, No Other Gastrointestinal: No Nausea, No Vomiting, No Abdominal Pain, No Diarrhea, No Constipation, No Melena, No Hematochezia, No Other Genitourinary: No Dysuria, No Frequency, No Incontinence, No Hematuria, No Retention, No Other Musculoskeletal: No other, No neck pain, No shoulder pain, No arm pain, No back pain, No hand pain, No leg pain, No foot pain Skin: No Rash, No Lesions, No Jaundice, No Bruising, No Other Objective Vitals Vital Signs Date Time Temp Pulse Resp B/P (MAP) Pulse Ox O2 Delivery O2 Flow Rate FiO2 10/07/24 13:00 97.4 62 17 135/80 (98) 94 97.4 10/07/24 08:00 Room Air* 0 21 Intake/Output Intake and Output 10/07/24 07:00 Intake Total 1345 ml Balance 1345 ml Intake Oral 1345 ml # Voids 5 # Bowel Movements 1 Exam HEENT pupils are reactive Neck is supple CVS S1-S2 regular rate and rhythm Respiratory bilateral clear GI positive bowel sounds Extremity no edema [facility] no motor deficit Medications Current Medications Medications Dose Ordered Sig/[place]vador Route Start Time Stop Time Status Last Admin Dose Admin Ondansetron HCl 4 mg Q4HP PRN IV 10/05/24 11:15 Acetaminophen 650 mg Q6HP PRN PO 10/05/24 11:15 Nitroglycerin 0.4 mg Q5MINP PRN SL 10/05/24 11:15 Morphine Sulfate 2 mg Q30M PRN IV 10/05/24 11:15 Atorvastatin Calcium 20 mg HS PO 10/05/24 22:00 10/06/24 20:52 20 MG Hydrochlorothiazide 25 mg DAILY PO 10/06/24 10:00 10/07/24 09:38 25 MG Laboratory Results Laboratory Tests 10/06/24 05:10 Urinalysis Test 10/05/24 07:39 Urine Color Light-yellow (Yellow) Urine Clarity Clear (Clear) Urine pH 5.5 (5.0-9.0) Urine Specific [place] 1.013 (1.001-1.035) Urine Protein Negative (Negative) Urine Ketones Negative (Negative) Urine Blood Trace /uL (Negative) H Urine Nitrite Negative (Negative) Urine Bilirubin Negative (Negative) Urine Urobilinogen Normal mg/dL (Negative) Urine Leukocyte Esterase Negative /uL (Negative) Urine RBC None seen /hpf (0 - 4) Urine Microscopic WBC 1 /HPF (0-5) Urine Squamous Epithelial Cells Few /hpf (<5) Urine Bacteria None seen /hpf (None Seen) Urine Glucose Normal mg/dL (Normal) Assessment/Plan Assessment/Plan 48-year-old female with a known history of hypertension, dyslipidemia DC planning to hospice chest tightness and bradycardia found to have 1. Symptomatic bradycardia suspected secondary to beta-celestino 2. Hypertension 3. Dyslipidemia -hold AV denis agents, cardiology consultation, patient was scheduled for stress test. Plan discussed with: Other Date of Service: Oct 07, 2024 Billing Provider: ETHAN WILKES MD Common Visit Codes: [id number] INP/OBS CARE(MOD) ETHAN WILKES MD Oct 07, 2024 16:01
[2024-10-07] MEDS: POTASSIUM EFFERVESENT TAB 25 MEQ PO ONE (16:14)
--- NOTE | 2024-10-07 19:14 | DVHPN2 ---
Consult Progress Note Subjective Other Systems: Patient denies any cardiac symptoms at time of assessment. Patient remains in normal sinus rhythm on manager site Objective vital signs Vital Sign Date Time Temp Pulse Resp B/P (MAP) Pulse Ox O2 Delivery O2 Flow Rate FiO2 10/07/24 13:00 97.4 62 17 135/80 (98) 94 97.4 10/07/24 08:00 Room Air* 0 21 Total Intake and Output 10/06/24 10/06/24 10/07/24 15:00 23:00 07:00 Intake Total 920 ml 425 ml Balance 920 ml 425 ml medications Current Medications Medications Dose Ordered Sig/Salvador Route Start Time Stop Time Status Last Admin Dose Admin Ondansetron HCl 4 mg Q4HP PRN IV 10/05/24 11:15 Acetaminophen 650 mg Q6HP PRN PO 10/05/24 11:15 Nitroglycerin 0.4 mg Q5MINP PRN SL 10/05/24 11:15 Morphine Sulfate 2 mg Q30M PRN IV 10/05/24 11:15 Atorvastatin Calcium 20 mg HS PO 10/05/24 22:00 10/06/24 20:52 20 MG Hydrochlorothiazide 25 mg DAILY PO 10/06/24 10:00 10/07/24 09:38 25 MG Examination: GENERAL:Normal, LUNGS:Normal, CVS:Normal, NEURO:Normal laboratory and microbiology Laboratory Tests 10/06/24 05:10 Test 10/06/24 05:10 Range/Units Serum Glucose 100 74-106 mg/dL Problem List/Assessment/Plan Problem List/Assessment/Plan Chest pain, rule out coronary ischemia Sinus bradycardia, likely medication induced, now normal sinus rhythm Hypertension Hyperlipidemia Prediabetes Anxiety Obesity Plan/Recommendation (Dr. Bella): * Echocardiogram reveals EF 50-55% * Discontinue beta-celestino; avoid AV denis blocking agents * BP control * Lipid-lowering agent * Cardiac surveillance * Nuclear stress test Patient seen and examined at bedside with . Given the patient's significant family history and clinical presentation, we will schedule the patient for a nuclear stress test at first availability on 10/08/24. In the meantime, avoid all AV denis blocking agents. Thank you for allowing us to care for this patient. Please call with any questions or concerns. This medical document was created using an electronic medical record system with voice recognition software and computerized dictation system. Although this document has been carefully reviewed, there might still be some phonetic and typographical errors. Occasional wrong-word or ``sound-alike substitutions may have occurred due to the inherent limitations of voice recognition software. These areas are purely typographical due to imperfections of the software programs and do not reflect any compromise in the patient's medical care. Please read the chart carefully and recognize, using context, where these substitutions have occurred. Plan discussed with: Patient Date of Service: Oct 07, 2024 Billing Provider: AQUILINO MCCOY Common Visit Codes: [id number] INP/OBS CARE(HIGH) AQUILINO MCCOY Oct 07, 2024 19:14
[2024-10-08 01:00] VITALS: BP 100/53; PULSE 74; RESP 18; TEMP 98; O2SAT 93
[2024-10-08 05:00] VITALS: BP 105/62; PULSE 75; RESP 18; TEMP 97.8; O2SAT 93
[2024-10-08 08:00] VITALS: PULSE 62; PULSE 66; RESP 20; O2SAT 92
[2024-10-08 08:19] LABS: Basophils # (auto) 0.1 10 ^3/uL (0-0.2); Basophils % (auto) 0.8 % (0.0-2.0); Eosinophils # (auto) 0.3 10 ^3/uL (0-0.8); Hematocrit 42.4 % (36.0-46.0); Hemoglobin 14.7 g/dL (12.2-16.2); Lymphocytes # (auto) 2.5 10 ^3/uL (0.4-5.4); Lymphocytes % (auto) 32.2 % (10.0-50.0); Mean Corpuscular Hgb Conc. 34.6 g/dL (32.0-36.0); Mean Corpuscular Volume 86.9 fL (80.0-100.0); Monocytes # (auto) 0.5 10 ^3/uL (0-1.3); Monocytes % (auto) 6.5 % (0.0-12.0); Neutrophils # (auto) 4.3 10 ^3/uL (1.6-8.6); Neutrophils % (auto) 56.5 % (37.0-80.0); Nucleated Red Blood Cells % 0.1 %; Platelet Count (auto) 281 10^3/uL (140-450); Red Blood Cells 4.88 10^6/uL (4.0-5.20); Red Cell Distribution Width 13.5 % (11.8-14.3); White Blood Cell 7.7 10^3/uL (4.4-10.8)
[2024-10-08 08:25] LABS: Anion Gap 8 (5-15); Carbon Dioxide 28 mmol/L (20-31); Chloride 104 mmol/L (98-107); Potassium 3.7 mmol/L (3.5-5.1); Sodium 140 mmol/L (136-145)
[2024-10-08 08:27] LABS: Calcium 9.5 mg/dL (8.7-10.4)
[2024-10-08 08:31] LABS: BUN/Creatinine Ratio 16.4 (10.0-20.0); Blood Urea Nitrogen 10 mg/dL (9-23); Glucose 95 mg/dL (74-106)
[2024-10-08] MEDS: REGADENOSON 0.4 MG/5 ML SYRG IV ONE ×2 (08:58→09:04)
[2024-10-08 09:00] VITALS: BP 108/65; PULSE 66; RESP 20; TEMP 97.8; O2SAT 92
[2024-10-08 10:28] LABS: Hepatitis B Surface Antigen Negative (Negative); Hepatitis C Antibody Negative (Negative)
[2024-10-08] MEDS: ACETAMINOPHEN 325 MG TAB PO PRN (10:53)
[2024-10-08] MEDS: LOSARTAN POTASSIUM 25 MG TAB PO SCH (10:53)
--- NOTE | 2024-10-08 12:15 | DVHSR ---
APPROVED REPORT Exam: Nuclear Stress Test Indication: Chest pain Stress Tech: Tiffanie Metcalf Ht: 5 ft 2 in Wt: 222 lbs BSA: 2.00 m2 HR: 71 bpm BP: 125/72 mmHg BMI: 40.59 Rhythm: NSR Medical History Medical History: HTN, HLD, REHANA, UTERINE ABLATION Allergies: NKA Stress Test Details Stress Test: Pharmacologic stress testing performed using 0.4 mg of regadenoson per 5 mL given IV ov er 10 seconds. HR Resting HR: 71 bpmMax Heart Rate (APMHR): 173.322728 bpm Max HR Achieved: 109 bpmTarget HR (85% APMHR): 147.978093 bpm % of APMHR: 63.01 Recovery HR: 92 bpm HR response to stress: Normal HR response to stress BP Resting BP: 125/72 mmHg Recovery BP: 127/78 mmHg BP response to stress: Normal blood pressure response to stress. ECG Resting ECG: Sinus Rhythm Stress ECG: S, Sinus Rhythm Recovery ECG: Sinus Rhythm Clinical Reason for Termination: Completed protocol Stress ECG Conclusion no stress induced ischemia noted Normal LVEF 72% NM EXAM: Myocardial Perfusion REST/STRESS Imaging Protocol: Rest Tc-99m/Stress Tc-99m 1 day Resting Data Rest SPECT myocardial perfusion imaging was performed in supine position 40 minutes following the int ravenous injection of 12.3 mCi of Tc-99m Sestamibi. Time of rest injection: 0820 Time of rest imagin Administration Route: IV Administration Site: Left AC Pharmacologic Stress Pharmacologic stress test was performed by injecting Regadenoson 0.4 mg IV push followed by the intra venous injection of 29.3 mCi of Tc-99m Sestamibi. Time of stress injection: 0920 Time of stress imagin Administration Route: IV Administration Site: Left Hand Gated Stress SPECT was performed 30 minutes after stress injection. The images were gated to evaluate regional wall motion and calculate left ventricular ejection fracti on. Nuclear Conclusion ECG Findings: negative for ischemia Nuclear Findings: negative for ischemia no stress induced ischemia noted Normal LVEF 72%
[2024-10-08 13:00] VITALS: BP 120/69; PULSE 76; RESP 18; TEMP 97.8; O2SAT 94
--- NOTE | 2024-10-08 14:56 | DVHPN2 ---
Consult Progress Note Date Seen: Oct 08, 2024 Subjective Review of Systems: CVS:Normal, RESPIRATORY:Normal, NEURO:Normal Objective vital signs Vital Sign Date Time Temp Pulse Resp B/P (MAP) Pulse Ox O2 Delivery O2 Flow Rate FiO2 10/08/24 10:53 108/65 10/08/24 09:00 97.8 66 20 92 97.8 10/08/24 08:00 Room Air* 0 21 Total Intake and Output 10/07/24 10/07/24 10/08/24 15:00 23:00 07:00 Intake Total 400 ml 240 ml Balance 400 ml 240 ml medications Current Medications Medications Dose Ordered Sig/Salvador Route Start Time Stop Time Status Last Admin Dose Admin Ondansetron HCl 4 mg Q4HP PRN IV 10/05/24 11:15 Acetaminophen 650 mg Q6HP PRN PO 10/05/24 11:15 10/08/24 10:53 650 MG Nitroglycerin 0.4 mg Q5MINP PRN SL 10/05/24 11:15 Morphine Sulfate 2 mg Q30M PRN IV 10/05/24 11:15 Atorvastatin Calcium 20 mg HS PO 10/05/24 22:00 10/07/24 21:01 20 MG Hydrochlorothiazide 25 mg DAILY PO 10/06/24 10:00 10/07/24 09:38 25 MG Losartan Potassium 25 mg DAILY PO 10/08/24 10:00 10/08/24 10:53 25 MG Examination: LUNGS:Normal, CVS:Normal, NEURO:Normal laboratory and microbiology Laboratory Tests 10/08/24 06:34 Test 10/08/24 06:34 Range/Units Serum Glucose 95 74-106 mg/dL Problem List/Assessment/Plan Problem List/Assessment/Plan Chest pain, rule out coronary ischemia Symptomatic sinus bradycardia, likely beta-celestino induced, now normal sinus rhythm Hypertension Hyperlipidemia Prediabetes Anxiety Obesity Plan/Recommendation (Dr. Christine) The patient underwent a transthoracic echocardiogram revealing an EF of 50-55%. A chemical induced stress test is negative for ischemia. Discontinue Atenolol therapy at home given symptomatic bradycardia. Continue ARB and HCTZ for blood pressure control. There is no further cardiac work-up indicated at this time. Kindly call if in need to re-consult. Thank you for allowing us to care for this patient. This medical document was created using an electronic medical record system with voice recognition software and computerized dictation system. Although this document has been carefully reviewed, there might still be some phonetic and typographical errors. Occasional wrong-word or ``sound-alike substitutions may have occurred due to the inherent limitations of voice recognition software. These areas are purely typographical due to imperfections of the software programs and do not reflect any compromise in the patient's medical care. Please read the chart carefully and recognize, using context, where these substitutions have occurred. Plan discussed with: Patient, Other Date of Service: Oct 08, 2024 Billing Provider: SAVANNAH MENDOSA Cardiology Common Codes: [id number] [facility](High SAVANNAH MENDOSA Oct 08, 2024 14:56
[2024-10-08] MEDS ORDERED: LOS25T PO (15:30)
--- NOTE | 2024-10-08 15:33 | DVHDS2 ---
Discharge Summary Date of Admission Oct 05, 2024 at 11:03 Date of Discharge: Oct 08, 2024 Labs/Diagnostic Data: Laboratory Results Test 10/08/24 06:34 10/06/24 05:10 10/05/24 08:05 10/05/24 07:39 White Blood Count 7.7 10^3/uL (4.4-10.8) Red Blood Count 4.88 10^6/uL (4.0-5.20) Hemoglobin 14.7 g/dL (12.2-16.2) Hematocrit 42.4 % (36.0-46.0) Mean Corpuscular Volume 86.9 fL (80.0-100.0) Mean Corpuscular Hemoglobin 30.0 pg (28.0-32.0) Mean Corpuscular Hemoglobin Concent 34.6 g/dL (32.0-36.0) Red Cell Distribution Width 13.5 % (11.8-14.3) Platelet Count 281 10^3/uL (140-450) Mean Platelet Volume 8.9 fL (6.9-10.8) Neutrophils (%) (Auto) 56.5 % (37.0-80.0) Lymphocytes (%) (Auto) 32.2 % (10.0-50.0) Monocytes (%) (Auto) 6.5 % (0.0-12.0) Eosinophils (%) (Auto) 4.0 % (0.0-7.0) Basophils (%) (Auto) 0.8 % (0.0-2.0) Neutrophils # (Auto) 4.3 10 ^3/uL (1.6-8.6) Lymphocytes # (Auto) 2.5 10 ^3/uL (0.4-5.4) Monocytes # (Auto) 0.5 10 ^3/uL (0-1.3) Eosinophils # (Auto) 0.3 10 ^3/uL (0-0.8) Basophils # (Auto) 0.1 10 ^3/uL (0-0.2) Nucleated Red Blood Cells 0.1 % Sodium Level 140 mmol/L (136-145) Potassium Level 3.7 mmol/L (3.5-5.1) Chloride Level 104 mmol/L (98-107) Carbon Dioxide Level 28 mmol/L (20-31) Anion Gap 8 (5-15) Blood Urea Nitrogen 10 mg/dL (9-23) Creatinine 0.61 mg/dL (0.550-1.02) Glomerular Filtration Rate Calc 111 mL/min (>90) BUN/Creatinine Ratio 16.4 (10.0-20.0) Serum Glucose 95 mg/dL (74-106) Calcium Level 9.5 mg/dL (8.7-10.4) Total Bilirubin 0.4 mg/dL (0.2-1.0) Aspartate Amino Transferase (AST) 31 U/L (13-40) Alanine Aminotransferase (ALT) 44 U/L (7-40) Alkaline Phosphatase 67 U/L (46-116) Total Protein 6.5 g/dL (5.7-8.2) Albumin 4.1 g/dL (3.2-4.8) Beta HCG, Quantitative 0.6 mIU/mL (1.5-4.2) Hepatitis B Surface Antigen Negative (Negative) Hepatitis C Antibody Negative (Negative) Urine Color Light-yellow (Yellow) Urine Clarity Clear (Clear) Urine pH 5.5 (5.0-9.0) Urine Specific [place] 1.013 (1.001-1.035) Urine Protein Negative (Negative) Urine Ketones Negative (Negative) Urine Blood Trace /uL (Negative) Urine Nitrite Negative (Negative) Urine Bilirubin Negative (Negative) Urine Urobilinogen Normal mg/dL (Negative) Urine Leukocyte Esterase Negative /uL (Negative) Urine RBC None seen /hpf (0 - 4) Urine Microscopic WBC 1 /HPF (0-5) Urine Squamous Epithelial Cells Few /hpf (<5) Urine Bacteria None seen /hpf (None Seen) Urine Glucose Normal mg/dL (Normal) Urine Opiates Screen Neg (NEGATIVE) Urine Fentanyl Screen Neg (NEGATIVE) Urine Barbiturates Screen Neg (NEGATIVE) Urine Phencyclidine Screen Neg (NEGATIVE) Urine Amphetamines Screen Neg (NEGATIVE) Urine Benzodiazepines Screen Neg (NEGATIVE) Urine Cocaine Screen Neg (NEGATIVE) Urine Cannabinoids Screen Neg (NEGATIVE) Influenza Type A Antigen Negative (Negative) Influenza Type B Antigen Negative (Negative) Test 10/05/24 06:34 Prothrombin Time 10.3 sec (9.3-11.8) Prothrombin Time INR 0.97 (0.9-1.15) Activated Partial Thromboplast Time 27.7 SEC (24.5-34.5) D-Dimer, Quantitative 0.20 mg/L FEU (0.0-0.49) Hemoglobin A1c 5.9 % A1C (<5.7) Magnesium Level 2.0 mg/dL (1.6-2.6) Troponin I High Sensitivity 4 ng/L (</=34) B-Type Natriuretic Peptide 15.97 pg/mL (0-100) Thyroid Stimulating Hormone (TSH) 2.93 uIU/mL (0.55-4.78) Other Laboratory Tests 10/08/24 06:34 Brief Hx & Hospital Course: 48-year-old female with a known history of hypertension, dyslipidemia who presented to the hospital with chest tightness and found to have bradycardia. Patient beta celestino was held. Patient was seen by Cardiology underwent stress test which was normal. Patient is being discharged under stable condition with close follow up as an outpatient with PCP and Cardiology. Condition at Discharge: Stable Final Diagnosis/Problems List 48-year-old female with a known history of hypertension, dyslipidemia DC planning to hospice chest tightness and bradycardia found to have 1. Symptomatic bradycardia suspected secondary to beta-celestino 2. Hypertension 3. Dyslipidemia Discharge Disposition: Home SNF Discharge Will this Physician continue t: No Discharge Instruct/Medications Diet: Cardiac 2g Na,low cholest Activity: No Restrictions, As Tolerated Follow Up/Referral: Follow up with the PCP in one week Follow up with the Cardiology in one week Medications: Losartan as prescribed, discontinue atenolol Discharge Statement: "Patient was advised to return to the ER or call 911 if any headaches, dizziness, shortness of breath, chest pain, abdominal pain, bleeding, fevers, or worsening of medical condition. Patient was counseled about treatment plan, medications, possible side effects, patientverbalized understanding. All questions were answered to the best of my ability. This discharge took greater then 30 minutes in planning, reviewing documentation, counseling the patient, and discussing with other team members." ASSESSMENT ASSESSMENT Assessment 48-year-old female with a known history of hypertension, dyslipidemia DC planning to hospice chest tightness and bradycardia found to have 1. Symptomatic bradycardia suspected secondary to beta-celestino 2. Hypertension 3. Dyslipidemia Date of Service: Oct 08, 2024 Billing Provider: ETHAN WILKES MD Common Visit Codes: 51807-QEL/OBS DISCH DAY >30min ETHAN WILKES MD Oct 08, 2024 15:33
== END 2024-10-08 17:02 | disposition home or self-care (01) | DRG 201 ==
LOC: ER 06:10 → TELE 11:03 → TELE-WESTW 19:21
PROVIDERS: ATTEND Internal Medicine
DX: R00.1 Bradycardia, unspecified (principal); E66.9 Obesity, unspecified; E78.5 Hyperlipidemia, unspecified; F41.9 Anxiety disorder, unspecified; T50.995A Adverse effect of other drugs, medicaments and biological substances, initial encounter; R73.03 Prediabetes; I10 Essential (primary) hypertension; Z90.49 Acquired absence of other specified parts of digestive tract; Z80.8 Family history of malignant neoplasm of other organs or systems; Z82.49 Family history of ischemic heart disease and other diseases of the circulatory system; Z83.3 Family history of diabetes mellitus; Z80.3 Family history of malignant neoplasm of breast; Z68.41 Body mass index [BMI] 40.0-44.9, adult; Y92.89 Other specified places as the place of occurrence of the external cause; Z79.899 Other long term (current) drug therapy
CPT/HCPCS: 36415; 71045; 78452; 80048; 80053; 80307; 81001; 83036; 83735; 83880; 84443; 84484; 84702; 85025; 85379; 85610; 85730; 86803; 87340; 87804; 93005; 93017; 93306; G0378

== ENCOUNTER 2024-10-19 19:45 | Emergency (ER) | payer MEDICAID ==
[~2024-10-19] VITALS: Ht 154.9 cm; Wt 100.0 kg
[~2024-10-19 19:45] MED LIST changes: +ATOR20TA50; +FAMO-12 PO; +HYDR25TA5; +LOS25T PO; -NAP500T PO; +OXYB5TAB14 PO; +TRAZ-227 PO
[2024-10-19 21:04] LABS: Urine Bacteria FEW /hpf (None Seen); Urine Blood 1+ /uL (Negative); Urine Clarity Clear (Clear); Urine Color Light-Yellow (Yellow); Urine Mucus FEW (None Seen); Urine Protein, UAD Negative (Negative); Urine Specific Gravity 1.013 (1.001-1.035); Urine Squamous Epithelial Cell FEW /hpf (<5); Urine Urobilinogen Normal (Negative); Urine WBC < 1 /HPF (0-5)
[2024-10-19 21:08] LABS: Rapid Influenza A Negative (Negative); Rapid Influenza B Negative (Negative)
[2024-10-19 21:09] LABS: COVID19 ANTIGEN SOFIA FIA NEGATIVE (NEGATIVE)
--- NOTE | 2024-10-19 21:18 | ED.PDOC ---
History of Present Illness HPI Comments 48 y/o F, with a Hx of HLD, HTN, and morbid obesity, presents with c/o non- radiating, epigastric abdominal pain and hypertension, today. Patient endorses on onset of pain in addition to checking and noticing her blood pressure being elevated at home twice, earlier, today, at a value of 130/89 and 140/88. She comments further on recent generalized bodyaches she had with chills, yesterday, that resolved on its own. She denies having any nausea, vomiting, diarrhea, urinary symptoms, fever, chills, or other associated symptoms or modifiers at this time. Vital signs were stable on arrival. Chief Complaint: Body Pain Time Seen by MD: 20:15 Reviewed Notes: Nurses Notes, Medications, Allergies Allergies: Coded Allergies: NO KNOWN ALLERGIES (Unverified , 06/11/24) Home Meds Active Scripts Losartan Potassium (Losartan Potassium) 25 Mg Tab, 25 MG PO DAILY for 60 Days, #60 TAB Prov:ETHAN WILKES MD 10/08/24 Reported Medications Trazodone Hcl (Trazodone Hcl) 50 Mg Tab, 1 TAB PO 10/05/24 Atorvastatin Calcium (ATORVASTATIN CALCIUM) 20 Mg Tab, 1 DAILY 10/05/24 Famotidine (Famotidine) 20 Mg Tab, 1 TAB PO BID 10/05/24 Hctz (Hydrochlorothiazide) 25 Mg Tab, 1 DAILY 10/05/24 Oxybutynin Chloride (Oxybutynin Chloride) 5 Mg Tab, 5 MG PO DAILY 10/05/24 Information Source: Patient Mode of Arrival: Ambulatory Severity: Moderate Timing: Hours Duration: Since onset Prehospital treatment: None Past Medical History PAST MEDICAL HISTORY: High Lipids, HTN Past Medical History (Other): morbid obesity Surgical History: Cholecystectomy TOBACCO CURER History: No Pertinent TOBACCO CURER History Family History Family History: Unknown Social History Smoker: Non-Smoker Alcohol: Denies ETOH Use Drugs: Denies Drug Use Lives In: Home Constitutional: denies: chills, diaphoresis, fatigue, fever, malaise, sweats, weakness, others EENTM: denies: blurred vision, double vision, ear bleeding, ear discharge, ear drainage, ear pain, ear ringing, eye pain, eye redness, hearing loss, mouth pain, mouth swelling, nasal discharge, nose bleeding, nose congestion, nose pain, photophobia, tearing, throat pain, throat swelling, voice changes, others Respiratory: denies: cough, hemoptysis, orthopnea, SOB at rest, shortness of breath, SOB with excertion, stridor, wheezing, others Cardiovascular: denies: chest pain, dizzy spells, diaphoresis, Dyspnea on exert ion, edema, irregular heart beat, left arm pain, lightheadedness, palpitations, PND, syncope, others Gastrointestinal: reports: abdominal pain; denies: abdomen distended, blood streaked bowels, constipated, diarrhea, dysphagia, difficulty swallowing, hematemesis, melena, nausea, poor appetite, poor fluid intake, rectal bleeding, rectal pain, vomiting, others Genitourinary: denies: abnormal vagina bleeding, burning, dyspareunia, dysuria, flank pain, frequency, hematuria, incontinence, pain, , vagina discharge, urgency, others Neurological: denies: dizziness, fainting, headache, left sided numbness, left sided weakness, numbness, paresthesia, pre-existing deficit, right sided numbness, right sided weakness, seizure, speech problems, tingling, tremors, weakness, others Musculoskeletal: denies: back pain, gout, joint pain, joint swelling, muscle pain, muscle stiffness, neck pain, others Integumetry: denies: bruises, change in color, change in hair/nails, dryness, laceration, lesions, lumps, rash, wounds, others Allergic/Immunocompromised: denies: Difficulty Healing, Frequent Infections, Hives, Itching, others Hematologic/Lymphatic: reports: others (HTN); denies: anemia, blood clots, easy bleeding, easy bruising, swollen glands Endocrine: denies: excessive hunger, excessive sweating, excessive thirst, excessive urination, flushing, intolerance to cold, intolerance to heat, unexplained weight gain, unexplained weight loss, others Psychiatric: denies: anxiety, bipolar disorder, depression, hopeless, panic disorder, schizophrenia, sleepless, suicidal, others All Other Systems: Reviewed and Negative (negative unless otherwise stated above or in HPI) Physical Exam General Appearance: Mild Distress (Moderate distress due to nonspecific abdominal pain concerns.), Obese HEENT: Normal ENT Inspection, Pharynx Normal, TMs Normal Neck: Full Range of Motion, Non-Tender, Normal, Normal Inspection Respiratory: Chest Non-Tender, Lungs Clear, No Accessory Muscle Use, No Respiratory Distress, Normal Breath Sounds Cardiovascular: No Edema, No JVD, No Murmur, No Gallop, Normal Peripheral Pulses, Regular Rate/Rhythm Breast Exam: Deferred Gastrointestinal: Other (Diffuse epigastric tenderness to palpation. Difficult to assess due to body habitus. No signs of trauma.) Genitalia: Deferred Pelvic: Deferred Rectal: Deferred Extremities: No calf tenderness, Normal capillary refill, Normal inspection, Normal range of motion, Non-tender, No pedal edema Neurologic: Alert, financial services education consultant II-XII nml as Tested, No Motor Deficits, Normal Affect, Normal Mood, No Sensory Deficits Cerebellar Function: Normal Reflexes: Normal Skin: Dry, Normal Color, Warm Lymphatic: No Adenopathy Was a procedure done? Was a procedure done?: No Differential Dx Considerations may include: viral syndrome, spoiled food, UTI, gastritis, gastroenteritis, COVID-19, influenza a/B X-Ray, Labs, Meds, VS Vital Signs Date Time Temp Pulse Resp B/P (MAP) Pulse Ox O2 Delivery O2 Flow Rate FiO2 10/19/24 20:05 99.1 104 18 113/74 (87) 98 Lab Test 10/19/24 20:25 Range/Units Urine Color Light-yellow Yellow Urine Clarity Clear Clear Urine pH 6.0 5.0-9.0 Urine Specific [place] 1.013 1.001-1.035 Urine Protein Negative Negative Urine Ketones Negative Negative Urine Blood 1+ H Negative /uL Urine Nitrite Negative Negative Urine Bilirubin Negative Negative Urine Urobilinogen Normal Negative mg/dL Urine Leukocyte Esterase Negative Negative /uL Urine RBC 1 0 - 4 /hpf Urine Microscopic WBC < 1 0-5 /HPF Urine Squamous Epithelial Cells Few <5 /hpf Urine Bacteria Few H None Seen /hpf Urine Mucus Few None Seen Urine Glucose Normal Normal mg/dL Urine Test Negative Negative Influenza Type A Antigen Negative Negative Influenza Type B Antigen Negative Negative SARS-CoV-2 Antigen (Rapid) Negative NEGATIVE X-Ray, Labs, Meds, VS Comment All studies performed the ED were evaluated by me personally. Urine was unremarkable for any urinary tract infection concerns and swabs were unremar kable for any COVID or influenza. Based on patient's complaints at arrival, I believe the patient is suffering from a small viral gastroenteritis. Blood pressure was unremarkable at time of evaluation. Advised patient to continue to utilize her meds as directed and follow up with her primary care provider for continued conversation is related to blood pressure medications as needed. Time of 1ST Reevaluation: 22:08 Reevaluation 1ST: Improved Consultation: PCP Patient Education/Counseling: Diagnosis, Treatment Family Education/Counseling: Diagnosis, Treatment, No Family Present Departure 1 Departure Time of Disposition: 22:09 Impression: Primary Impression: Viral gastroenteritis Disposition: 01 HOME / SELF CARE / HOMELESS Condition: Stable Additional Instructions: Advised patient utilize medication as needed for symptomatic pain relief. Patient should follow up with the primary care provider if there are concerns related to blood pressure management. e-Prescriptions Acetaminophen (Acetaminophen) 500 Mg Tab 500 MG PO Q4HP PRN, #30 TAB Prov: JULIANNE OTERO PAC 10/19/24 Dicyclomine Hcl (BENTYL CAPSULE) 10 Mg Cp 1 CAP PO Q6HPRN, #20 CAP 0 Refills Prov: JULIANNE OTERO PAC 10/19/24 Discharged With: Self, Friend Critical Care Note Critical Care Time?: No Stability Stability form required: No Heart Score Heart Score: Heart Score Response (Comments) Value History N/A 0 EKG N/A 0 Age N/A 0 Risk Factors N/A 0 Troponin N/A 0 Total 0 I personally scribed for JULIANNE OTERO PAC ([email or web address]) on 10/19/24 at 21:18. Electronically submitted by Paolo Hicks [email or web address]). JULIANNE OTERO PAC Oct 19, 2024 21:18
[2024-10-19] MEDS ORDERED: DICY10CA PO (22:10)
[2024-10-19] MEDS ORDERED: ACET500T58 PO (22:10)
[2024-10-19 22:30] VITALS: BP 135/93; PULSE 95; RESP 18; TEMP 98; O2SAT 97
[2024-10-19] MEDS: DICYCLOMINE HCL (10MG/ML) 2 ML AMPULE IM ONE (22:34)
== END 2024-10-19 22:42 | disposition home or self-care (01) ==
LOC: ER 19:45
DX: A08.4 Viral intestinal infection, unspecified (principal); E78.5 Hyperlipidemia, unspecified; I10 Essential (primary) hypertension; Z79.899 Other long term (current) drug therapy; Z90.49 Acquired absence of other specified parts of digestive tract; Z20.822 Contact with and (suspected) exposure to COVID-19; Z32.02 Encounter for pregnancy test, result negative
CPT/HCPCS: 36415; 81001; 81025; 87426; 87804; 96372; 99283; J0500

== ENCOUNTER 2024-10-24 02:37 | Emergency (ER) | payer MEDICAID, OTHER ==
[~2024-10-24] VITALS: Ht 154.9 cm; Wt 100.5 kg
[~2024-10-24 02:37] MED LIST changes: +ACET500T58 PO; +DICY10CA PO
--- NOTE | 2024-10-24 02:58 | ED.PDOC ---
HPI Comments 48-year-old female with a history of hyperlipidemia, hypertension, anxiety, cholecystectomy, and uterine ablation brought in by family complaining of chest pain. Patient states the pain is pressure-like, awakened her from sleep about 20 minutes prior to arrival, and is associated with left hand and left foot tingling as well as lightheadedness. Patient states she is not sure if these symptoms are due to anxiety/panic attack or are of cardiac etiology. She denies any nausea, vomiting, diaphoresis or edema. Chief Complaint: Chest Pain Time Seen by MD: 02:50 Reviewed Notes: Nurses Notes, Medications, Allergies Allergies: Coded Allergies: NO KNOWN ALLERGIES (Unverified , 06/11/24) Home Meds Active Scripts Acetaminophen (Acetaminophen) 500 Mg Tab, 500 MG PO Q4HP PRN, #30 TAB Prov:JULIANNE OTERO PAC 10/19/24 Dicyclomine Hcl (BENTYL CAPSULE) 10 Mg Cp, 1 CAP PO Q6HPRN, #20 CAP 0 Refills Prov:JULIANNE OTERO PAC 10/19/24 Losartan Potassium (Losartan Potassium) 25 Mg Tab, 25 MG PO DAILY for 60 Days, #60 TAB Prov:ETHAN WILKES MD 10/08/24 Reported Medications Trazodone Hcl (Trazodone Hcl) 50 Mg Tab, 1 TAB PO 10/05/24 Atorvastatin Calcium (ATORVASTATIN CALCIUM) 20 Mg Tab, 1 DAILY 10/05/24 Famotidine (Famotidine) 20 Mg Tab, 1 TAB PO BID 10/05/24 Hctz (Hydrochlorothiazide) 25 Mg Tab, 1 DAILY 10/05/24 Oxybutynin Chloride (Oxybutynin Chloride) 5 Mg Tab, 5 MG PO DAILY 10/05/24 Information Source: Patient Mode of Arrival: Ambulatory Severity: Moderate Timing: Minutes Duration: Since onset Prehospital treatment: None Past Medical History PAST MEDICAL HISTORY: Anxiety, High Lipids, HTN Past Medical History (Other): Morbid obesity Surgical History: Cholecystectomy SCHOOL BUSINESS ADMINISTRATOR History: No Pertinent SCHOOL BUSINESS ADMINISTRATOR History, Other (Uterine ablation) Family History Family History: Unknown Social History Smoker: Non-Smoker Alcohol: Denies ETOH Use Drugs: Denies Drug Use Lives In: Home All Other Systems: Reviewed and Negative (Comprehensive system review is negative unless otherwise stated in HPI ) Physical Exam General Appearance: Mild Distress, Obese HEENT: Other (Pupils symmetric, moist mucous membranes) Neck: Full Range of Motion, Normal Inspection Respiratory: Lungs Clear, No Accessory Muscle Use, No Respiratory Distress, Normal Breath Sounds Cardiovascular: No Edema, No JVD, Regular Rate/Rhythm Breast Exam: Deferred Gastrointestinal: Non Tender, Soft Genitalia: Deferred Pelvic: Deferred Rectal: Deferred Extremities: Normal inspection, Normal range of motion, Non-tender, No pedal edema Neurologic: Alert (Oriented x4), Normal Affect, Other (Appears very anxious. Ambulatory without difficulty. No gross focal deficit.) Cerebellar Function: NOT DONE Reflexes: NOT DONE Skin: Dry, Normal Color, Warm Lymphatic: NOT DONE EKG EKG : Comments Sinus rhythm, rate 76, normal intervals, normal axis, normal QRS, no ST/T changes. Was a procedure done? Was a procedure done?: No CP Differential Dx Differential Diagnosis: Angina, Anxiety / Panic Attack, Heart Failure, OR Differential Diagnosis: N/A Differential Diagnosis: Angina, Chest Wall Pain, Gastritis, Myocardial Infarction, Pericarditis, Pneumonia, Other (Anxiety) X-Ray, Labs, Meds, VS Vital Signs Date Time Temp Pulse Resp B/P (MAP) Pulse Ox O2 Delivery O2 Flow Rate FiO2 10/24/24 04:28 80 18 97 Room Air* 0 21 10/24/24 04:19 98.6 80 18 137/74 (95) 97 98.6 10/24/24 02:58 76 10/24/24 02:43 76 10/24/24 02:40 97.7 8 20 118/69 (85) 95 Lab Test 10/24/24 03:35 10/24/24 02:44 Range/Units Troponin I High Sensitivity < 3 L < 3 L </=34 ng/L White Blood Count 8.6 4.4-10.8 10^3/uL Red Blood Count 5.32 H 4.0-5.20 10^6/uL Hemoglobin 15.4 12.2-16.2 g/dL Hematocrit 46.3 H 36.0-46.0 % Mean Corpuscular Volume 86.9 80.0-100.0 fL Mean Corpuscular Hemoglobin 28.9 28.0-32.0 pg Mean Corpuscular Hemoglobin Concent 33.2 32.0-36.0 g/dL Red Cell Distribution Width 13.9 11.8-14.3 % Platelet Count 281 140-450 10^3/uL Mean Platelet Volume 8.8 6.9-10.8 fL Neutrophils (%) (Auto) 43.7 37.0-80.0 % Lymphocytes (%) (Auto) 44.2 10.0-50.0 % Monocytes (%) (Auto) 8.5 0.0-12.0 % Eosinophils (%) (Auto) 3.3 0.0-7.0 % Basophils (%) (Auto) 0.3 0.0-2.0 % Neutrophils # (Auto) 3.8 1.6-8.6 10 ^3/uL Lymphocytes # (Auto) 3.8 0.4-5.4 10 ^3/uL Monocytes # (Auto) 0.7 0-1.3 10 ^3/uL Eosinophils # (Auto) 0.3 0-0.8 10 ^3/uL Basophils # (Auto) 0 0-0.2 10 ^3/uL Nucleated Red Blood Cells 0.1 % Sodium Level 142 136-145 mmol/L Potassium Level 3.5 3.5-5.1 mmol/L Chloride Level 103 98-107 mmol/L Carbon Dioxide Level 31 20-31 mmol/L Anion Gap 8 5-15 Blood Urea Nitrogen 12 9-23 mg/dL Creatinine 0.65 0.550-1.02 mg/dL Glomerular Filtration Rate Calc 109 >90 mL/min BUN/Creatinine Ratio 18.5 10.0-20.0 Serum Glucose 123 H 74-106 mg/dL Calcium Level 10.1 8.7-10.4 mg/dL B-Type Natriuretic Peptide 7.61 0-100 pg/mL Beta HCG, Quantitative 1.2 L 1.5-4.2 mIU/mL Current Medications Medications (Trade) Dose Ordered Sig/Salvador Route Start Time Stop Time Status Last Admin Lorazepam (Ativan Inj) 1 mg ONCE ONCE IM 10/24/24 03:15 10/24/24 03:16 DC 10/24/24 04:22 Ketorolac Tromethamine (Toradol Injection) 60 mg ONCE ONCE IM 10/24/24 03:15 10/24/24 03:16 DC 10/24/24 04:[address] [address] Ph: [phone] DIAGNOSTIC IMAGING Diagnostic Imaging Report : [id number] Signed PATIENT: BERNADETTE ZARATE ACCT: [id number] UNIT: [id number] : 1975 LOC: ER ROOM / BED: / AGE / SEX: 48 / F ADM STATUS: REG ER SERVICE 1 ORDERING PHYSICIAN: ESSENCE GAY MD PROCEDURE(s): CXRP - CHEST PORTABLE REASON: cp ORDER NUMBER(s): [id number], ACCESSION NUMBER(s): [id number] CHEST RADIOGRAPH Indication: cp Technique: Single frontal view of the chest was obtained Comparison: XY CHEST PORTABLE on DOS: 10/05/24 IMPRESSION: Heart appears normal in size. The lungs appear clear without focal airspace opacity, effusion, or pneumothorax ATED BY: JUDIE GARRISON MD DICTATED DATE/TIME: 10/24/24331 SIGNED BY: JUDIE GARRISON MD SIGNED DATE/TIME: 10/24/24331 CC: X-Ray, Labs, Meds, VS Comment 48-year-old female with a history of hyperlipidemia, hypertension, anxiety, cholecystectomy, and uterine ablation brought in by family complaining of chest pain. Vitals unremarkable Exam remarkable for anxious mood Rhythm strip independently interpreted by me: Sinus rhythm, rate 80, no ectopy. Chest x-ray unremarkable CBC, metabolic panel, BNP and serial troponins unremarkable for any abnormality of acute significance Patient treated with the following in the ED: Toradol 60 mg IM, Ativan 1 mg IM On re-evaluation, patient states symptoms have resolved. Vitals are stable. Hospitalization was considered, however patient had rapid improvement of symptoms with treatment in the ED for anxiety, and I no longer feel hospitalization is necessary. Patient appears stable for discharge with close outpatient follow-up with her primary physician for referral to a commissary production supervisor for outpatient cardiac workup. Time of 1ST Reevaluation: 03:20 Reevaluation 1ST: Unchanged Patient Education/Counseling: Diagnosis, Treatment Family Education/Counseling: No Family Present Departure 1 Departure Time of Disposition: 04:55 Impression: Primary Impression: Chest pain Qualified Codes: R07.9 - Chest pain, unspecified Additional Impression: Anxiety Disposition: 01 HOME / SELF CARE / HOMELESS Condition: Stable Additional Instructions: Your blood tests, including screening test for heart attack and heart failure, were unremarkable. Your EKG was normal. Your chest x-ray was normal. I have prescribed medication for anxiety. Follow-up with your primary doctor in 1-2 days for referral to a commissary production supervisor. e-Prescriptions Hydroxyzine HCl (Hydroxyzine Hydrochloride) 50 Mg Tab 50 MG PO Q6HP PRN, #20 TAB prn anxiety Prov: ESSENCE GAY MD 10/24/24 Discharged With: Relative Critical Care Note Critical Care Time?: No Stability Stability form required: No Heart Score Heart Score: Heart Score Response (Comments) Value History Slightly Suspicious 0 EKG Normal 0 Age 45-64 1 Risk Factors >3 or Hx ASHD 2 Troponin Normal limit 0 Total 3 I personally scribed for ESSENCE GAY MD ([email or web address]) on 10/24/24 at 02:58. Electronically submitted by Paolo Hicks ([email or web address]). I personally scribed for ESSENCE GAY MD ([email or web address]) on 10/24/24 at 04:43. Electronically submitted by Paolo Hicks [email or web address]). ESSENCE GAY MD Oct 24, 2024 02:58
--- NOTE | 2024-10-24 03:32 | DVH ---
CHEST RADIOGRAPH Indication: cp Technique: Single frontal view of the chest was obtained Comparison: XY CHEST PORTABLE on DOS: 10/05/24 IMPRESSION: Heart appears normal in size. The lungs appear clear without focal airspace opacity, effusion, or pn eumothorax
[2024-10-24 03:37] LABS: Chloride 103 mmol/L (98-107); Potassium 3.5 mmol/L (3.5-5.1); Sodium 142 mmol/L (136-145)
[2024-10-24 03:38] LABS: Anion Gap 8 (5-15); Basophils # (auto) 0 10 ^3/uL (0-0.2); Basophils % (auto) 0.3 % (0.0-2.0); Calcium 10.1 mg/dL (8.7-10.4); Eosinophils # (auto) 0.3 10 ^3/uL (0-0.8); Eosinophils % (auto) 3.3 % (0.0-7.0); Hematocrit 46.3 % (36.0-46.0); Hemoglobin 15.4 g/dL (12.2-16.2); Lymphocytes # (auto) 3.8 10 ^3/uL (0.4-5.4); Lymphocytes % (auto) 44.2 % (10.0-50.0); Mean Corpuscular Hemoglobin 28.9 pg (28.0-32.0); Mean Corpuscular Hgb Conc. 33.2 g/dL (32.0-36.0); Mean Corpuscular Volume 86.9 fL (80.0-100.0); Monocytes # (auto) 0.7 10 ^3/uL (0-1.3); Monocytes % (auto) 8.5 % (0.0-12.0); Neutrophils # (auto) 3.8 10 ^3/uL (1.6-8.6); Neutrophils % (auto) 43.7 % (37.0-80.0); Nucleated Red Blood Cells % 0.1 %; Platelet Count (auto) 281 10^3/uL (140-450); Red Blood Cells 5.32 10^6/uL (4.0-5.20); Red Cell Distribution Width 13.9 % (11.8-14.3); White Blood Cell 8.6 10^3/uL (4.4-10.8)
[2024-10-24 03:43] LABS: BUN/Creatinine Ratio 18.5 (10.0-20.0); Blood Urea Nitrogen 12 mg/dL (9-23)
[2024-10-24 03:55] LABS: Carbon Dioxide 31 mmol/L (20-31); Glucose 123 mg/dL (74-106)
[2024-10-24 04:19] VITALS: TEMP 98.6
[2024-10-24] MEDS: KETOROLAC TROMETH 60MG/2ML VIAL IM ONE (04:21)
[2024-10-24] MEDS: LORazepam 2MG/ML-1ML VIAL IM ONE (04:22)
[2024-10-24 04:28] VITALS: PULSE 80; RESP 18; O2SAT 97
[2024-10-24] MEDS ORDERED: HYDR50TA32 PO (04:57)
[2024-10-24 05:10] VITALS: BP 116/90; PULSE 77; RESP 18; O2SAT 97
--- NOTE | 2024-10-24 06:33 | ECG ---
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
== END 2024-10-24 05:14 | disposition home or self-care (01) ==
LOC: ER 02:37
DX: R07.89 Other chest pain (principal); F41.9 Anxiety disorder, unspecified; I10 Essential (primary) hypertension; E78.5 Hyperlipidemia, unspecified; Z90.49 Acquired absence of other specified parts of digestive tract; Z79.899 Other long term (current) drug therapy
CPT/HCPCS: 36415; 71045; 80048; 83880; 84484; 84702; 85025; 93005; 96372; 99285; J1885; J2060

== ENCOUNTER 2025-04-09 03:00 | Inpatient (IN) | payer MEDICAID ==
[~2025-04-09] VITALS: Ht 157.5 cm; Wt 95.5 kg
[~2025-04-09 03:00] MED LIST changes: +HYDR50TA32 PO
[2025-04-09 03:23] LABS: Hematocrit 45.2 % (36.0-46.0); Hemoglobin 15.7 g/dL (12.2-16.2); Mean Corpuscular Hemoglobin 30.1 pg (28.0-32.0); Mean Corpuscular Volume 86.5 fL (80.0-100.0); Nucleated Red Blood Cells % 0.0 %
[2025-04-09 03:32] LABS: Chloride 104 mmol/L (98-107); Sodium 141 mmol/L (136-145)
[2025-04-09 03:33] LABS: Anion Gap 11 (5-15); Carbon Dioxide 26 mmol/L (20-31)
[2025-04-09 03:34] LABS: Calcium 9.4 mg/dL (8.7-10.4); Potassium 3.0 mmol/L (3.5-5.1)
--- NOTE | 2025-04-09 03:34 | DVH ---
CHEST RADIOGRAPH Indication: cp Technique: Single frontal view of the chest was obtained Comparison: XY CHEST PORTABLE on DOS: 10/24/24, XY CHEST PORTABLE on DOS: 10/05/24 IMPRESSION: Heart appears normal in size. The lungs appear clear without focal airspace opacity, effusion, or pn eumothorax
--- NOTE | 2025-04-09 03:37 | ED.PDOC ---
History of Present Illness HPI Comments 49-year-old female presents with chief complaint of general, right-sided numbness and tingling and chest wall pressure. Patient endorses on awakening to symptoms, this morning, after having her blood pressure and oxygen saturation fluctuate all day, yesterday. She states on standing up and collapsing to the ground without passing out or injuring her head. Significant history of anxiety, hyperlipidemia, hypertension, and cholecystectomy. Denies having any shortness of breath, nausea, vomiting, or further associated symptoms. REVIEW OF SYSTEMS: General: No fever, no chills, HEENT: No neck pain, no blurred vision Cardiac: chest pain. No palpitations. Lungs: No shortness of breath, GI: No abdominal pain, no vomiting Musculoskeletal: No joint pain , no back pain Skin: No rash, no wound Neuro: Generalized, right sided numbness and tingling; No headache, no dizziness, no syncope PHYSICAL EXAM: General: Awake, alert and oriented. No acute distress. Skin: Skin in warm, dry and intact. Appropriate color for ethnicity. HEENT: The head is normocephalic and atraumatic. Conjunctivae are clear without exudates or hemorrhage. Sclera is non-icteric. EOM are intact. No signs of nystagmus. Eyelids are normal in appearance without swelling or lesions. Oral mucosa is pink and moist Neck: The neck is supple with normal range of motion. No JVD. Cardiac: Heart rate and rhythm are normal. No murmurs, gallops, or rubs are auscultated. Respiratory: No signs of respiratory distress. Lung sounds are clear in all lobes bilaterally without rales, rhonchi, or wheezes. Abdominal: Abdomen is soft, non-tender without distention, guarding or rigidity. Bowel sounds are present and normoactive in all four quadrants. Extremities: Upper and lower extremities are atraumatic in appearance without deformity or edema. Neurological: The patient is awake, alert and oriented to person, place, and time with normal speech. Speech is clear. There is no facial asymmetry. No upper or lower extremity drift. Patient is able to balance on each leg without issue. Normal finger to nose test. Sensations intact bilaterally without discrepancy Psychiatric: Appropriate mood and affect. Good judgement and insight. Chief Complaint: Shortness of Breath Time Seen by MD: 03:15 Reviewed Notes: Nurses Notes, Medications, Allergies Allergies: Coded Allergies: NO KNOWN ALLERGIES (Unverified , 06/11/24) Home Meds Active Scripts Hydroxyzine HCl (Hydroxyzine Hydrochloride) 50 Mg Tab, 50 MG PO Q6HP PRN, #20 TAB prn anxiety Prov:ESSENCE GAY MD 10/24/24 Acetaminophen (Acetaminophen) 500 Mg Tab, 500 MG PO Q4HP PRN, #30 TAB Prov:JULIANNE OTERO PAC 10/19/24 Losartan Potassium (Losartan Potassium) 25 Mg Tab, 25 MG PO DAILY for 60 Days, #60 TAB Prov:ETHAN WILKES MD 10/08/24 Reported Medications Oxybutynin Chloride (Oxybutynin Chloride) 5 Mg Tab, 5 MG GT DAILY, TAB 04/09/25 Gabapentin (Gabapentin) 300 Mg Cap, 1 CAP PO HS 04/09/25 Trazodone Hcl (Trazodone Hcl) 50 Mg Tab, 1 TAB PO 10/05/24 Atorvastatin Calcium (ATORVASTATIN CALCIUM) 20 Mg Tab, 1 DAILY 10/05/24 Famotidine (Famotidine) 20 Mg Tab, 1 TAB PO BID 10/05/24 Hctz (Hydrochlorothiazide) 25 Mg Tab, 1 DAILY 10/05/24 Oxybutynin Chloride (Oxybutynin Chloride) 5 Mg Tab, 5 MG PO DAILY 10/05/24 Discontinued Scripts Dicyclomine Hcl (BENTYL CAPSULE) 10 Mg Cp, 1 CAP PO Q6HPRN, #20 CAP 0 Refills Prov:JULIANNE OTERO PAC 10/19/24 Information Source: Patient Mode of Arrival: Ambulatory Severity: Moderate Timing: Hours Duration: Since onset Prehospital treatment: None Past Medical History PAST MEDICAL HISTORY: Anxiety, High Lipids, HTN Surgical History: Cholecystectomy, Hysterectomy PROMOTION SPECIALIST History: No Pertinent PROMOTION SPECIALIST History, Other Family History Family History: Unknown Social History Smoker: Non-Smoker Alcohol: Denies ETOH Use Drugs: Denies Drug Use Lives In: Home Was a procedure done? Was a procedure done?: No EKG EKG : Pulse Rate (adult): 66 [place]: Normal Cardiac Rhythm: NSR Block: None Hypertrophy: None ST: Normal Differential Dx Considerations may include: Differential diagnoses considered include acute ischemic coronary syndrome, aortic dissection, cardiac tamponade, mediastinitis, pulmonary embolus, pneumothorax, tension pneumothorax, esophageal rupture, coronary artery vasospasm, myocarditis, pericarditis, pneumonia, pulmonary edema, esophageal tear, pancreatitis, aortic stenosis, dilated cardiomyopathy, hypertrophic cardiomyopathy, mitral valve prolapse, malignancy, pleuritis, pneumomediastinum, primary pulmonary hypertension, cholecystitis, esophageal spasm, esophagus, gastritis, GERD, peptic ulcer disease, costochondritis, fibromyalgia, rib fracture, herpes zoster, radicular syndromes, thoracic outlet syndrome, somatization. X-Ray, Labs, Meds, VS Vital Signs Date Time Temp Pulse Resp B/P (MAP) Pulse Ox O2 Delivery O2 Flow Rate FiO2 04/09/25 07:38 97.9 74 18 130/83 (99) 97 97.9 04/09/25 05:33 66 04/09/25 03:13 98.2 72 18 126/67 94 98.2 04/09/25 03:07 66 Lab Test 04/09/25 04:28 04/09/25 03:13 Range/Units Troponin I High Sensitivity < 3 L < 3 L </=34 ng/L White Blood Count 9.9 4.4-10.8 10^3/uL Red Blood Count 5.23 H 4.0-5.20 10^6/uL Hemoglobin 15.7 12.2-16.2 g/dL Hematocrit 45.2 36.0-46.0 % Mean Corpuscular Volume 86.5 80.0-100.0 fL Mean Corpuscular Hemoglobin 30.1 28.0-32.0 pg Mean Corpuscular Hemoglobin Concent 34.8 32.0-36.0 g/dL Red Cell Distribution Width 14.0 11.8-14.3 % Platelet Count 295 140-450 10^3/uL Mean Platelet Volume 8.4 6.9-10.8 fL Neutrophils (%) (Auto) 55.6 37.0-80.0 % Lymphocytes (%) (Auto) 34.1 10.0-50.0 % Monocytes (%) (Auto) 7.3 0.0-12.0 % Eosinophils (%) (Auto) 2.0 0.0-7.0 % Basophils (%) (Auto) 1.0 0.0-2.0 % Neutrophils # (Auto) 5.5 1.6-8.6 10 ^3/uL Lymphocytes # (Auto) 3.4 0.4-5.4 10 ^3/uL Monocytes # (Auto) 0.7 0-1.3 10 ^3/uL Eosinophils # (Auto) 0.2 0-0.8 10 ^3/uL Basophils # (Auto) 0.1 0-0.2 10 ^3/uL Nucleated Red Blood Cells 0.0 % Sodium Level 141 136-145 mmol/L Potassium Level 3.0 L 3.5-5.1 mmol/L Chloride Level 104 98-107 mmol/L Carbon Dioxide Level 26 20-31 mmol/L Anion Gap 11 5-15 Blood Urea Nitrogen 10 9-23 mg/dL Creatinine 0.61 0.550-1.02 mg/dL Glomerular Filtration Rate Calc 110 >90 mL/min BUN/Creatinine Ratio 16.4 10.0-20.0 Serum Glucose 90 74-106 mg/dL Calcium Level 9.4 8.7-10.4 mg/dL B-Type Natriuretic Peptide 15.73 0-100 pg/mL Thyroid Stimulating Hormone (TSH) 2.81 0.55-4.78 uIU/mL [place] [address] Ph: [phone] DIAGNOSTIC IMAGING Diagnostic Imaging Report : [id number] Signed PATIENT: BERNADETTE ZARATE ACCT: [id number] UNIT: [id number] : 1975 LOC: ER ROOM / BED: / AGE / SEX: 49 / F ADM STATUS: REG ER SERVICE 1 ORDERING PHYSICIAN: MIROSLAVA MCDONOUGH MD PROCEDURE(s): CXR1 - CHEST XRAY 1 VIEW REASON: cp ORDER NUMBER(s): [id number], ACCESSION NUMBER(s): [id number] CHEST RADIOGRAPH Indication: cp Technique: Single frontal view of the chest was obtained Comparison: XY CHEST PORTABLE on DOS: 10/24/24, XY CHEST PORTABLE on DOS: 10/05/24 IMPRESSION: Heart appears normal in size. The lungs appear clear without focal airspace opacity, effusion, or pneumothorax ATED BY: JUDIE GARRISON MD DICTATED DATE/TIME: 04/09/25333 SIGNED BY: JUDIE GARRISON MD SIGNED DATE/TIME: 04/09/25333 CC: Time of 1ST Reevaluation: 03:45 Reevaluation 1ST: Unchanged Patient Education/Counseling: Treatment, Other (Need for admission) Family Education/Counseling: No Family Present SEPSIS Sepsis Screen Date sepsis recognized/suspect: Apr 09, 2025 Time Sepsis recognized/suspect: 316 Recent Procedure: No On Antibiotic Therapy: No Respiratory Rate >20: No Heart Rate >90: No Temp<36 C (96.8 F) or >38.3 C: No SBP <90 or MAP <65 mmHG: No New Acute Mental Status Change: No Is the patient on CPAP, BIPAP,: No Physician Orders Electrocardigram (04/09/25 04:01) Electrocardigram (04/09/25 06:01) Chest Xray 1 View (04/09/25 03:02) Electrocardigram (04/09/25 03:02) Electrocardigram (04/09/25 04:02) Electrocardigram (04/09/25 06:02) Head Without Contrast (04/09/25 03:33) Angio Head/Neck (04/09/25 03:33) Vital Signs Date Time Temp Pulse Resp B/P (MAP) Pulse Ox O2 Delivery O2 Flow Rate FiO2 04/09/25 07:38 97.9 74 18 130/83 (99) 97 97.9 04/09/25 05:33 66 04/09/25 03:13 98.2 72 18 126/67 94 98.2 04/09/25 03:07 66 Laboratory Tests Test 04/09/25 03:13 White Blood Count 9.9 10^3/uL (4.4-10.8) Departure 1 Departure Time of Disposition: 05:39 Impression: Primary Impression: Chest pain Additional Impressions: Right sided numbness Hypokalemia History of hypertension Disposition: ADMITTED INPATIENT Condition: Stable Comments MDM: Patient admitted to hospitalist service for further treatment, evaluation and monitoring. Extensive evaluation was performed in attempt to identify or rule out: (See differential diagnosis section) The following tests were ordered, and results were reviewed by me and discussed with patient: (See diagnostic results section) The following test were independently interpreted by me: EKG I reviewed and agreed with the following test results read by other providers: Chest x-ray I reviewed the following notes from the pt's past medical encounters: June 11, 2024, October 05, 2024, October 19, 2024, and October 24, 2024 encounters for peripheral edema, bradycardia, viral gastroenteritis, chest pain, respectively Additional information was gathered from interviewing the following independent historians: N/A Discussion of management or test interpretation with external physician/other qualified health primary care nurse practitioner: N/A Decision regarding hospitalization or escalation of hospital level of care: Risk and benefits of admission for further treatment of patient's condition was considered. Due to patient's current clinical condition, high risk of decline and poor outcome if discharged and need for further inpatient management and monitoring, patient will be admitted to the hospital. Critical Care Note Critical Care Time?: No Stability Stability form required: No Heart Score Heart Score: Heart Score Response (Comments) Value History Moderate Suspicious 1 EKG Normal 0 Age 45-64 1 Risk Factors 1 or 2 risk factors 1 Troponin Normal limit 0 Total 3 I personally scribed for MIROSLAVA MCDONOUGH MD ([email or web address]) on 04/09/25 at 03:37. Electronically submitted by Paolo Hicks ([email or web address]). I personally scribed for MIROSLAVA MCDONOUGH MD ([email or web address]) on 04/09/25 at 05:33. Electronically submitted by Paolo Hicks ([email or web address]). I personally scribed for MIROSLAVA MCDONOUGH MD ([email or web address]) on 04/09/25 at 05:35. Electronically submitted by Paolo Hicks [email or web address]). MIROSLAVA MCDONOUGH MD Apr 09, 2025 03:37
[2025-04-09 03:38] LABS: Glucose 90 mg/dL (74-106)
[2025-04-09 03:39] LABS: BUN/Creatinine Ratio 16.4 (10.0-20.0); Blood Urea Nitrogen 10 mg/dL (9-23)
--- NOTE | 2025-04-09 05:23 | DVH ---
INDICATION: Right upper and right lower extremity numbness EXAM DATE: 04/09/2025 03:59 AM COMPARISON: None TECHNIQUE: CTA head without and with intravenous contrast. CTA neck with intravenous contrast. 3D image postprocessing was performed on a dedicated workstation and images were used for interpretation and reporting. RADIATION DOSE: Brain: CTDIvol: 7.76 mGy, DLP: 1691.12 mGy*cm Tracker: CTDIvol: 7.76 mGy, DLP: 1691.12 mGy*cm Angio: CTDIvol: 7.76 mGy, DLP: 1691.12 mGy*cm FINDINGS: CT head: There is no evidence of acute intracranial hemorrhage, extra-axial collection, mass effect, midline s hift, herniation or hydrocephalus. The ventricles, sulci and cisterns are age appropriate. The escalante -white differentiation is intact. The visualized paranasal sinuses and mastoid air cells are clear. The surrounding soft tissues and osseous structures are unremarkable. CTA head: There is normal enhancement of the visualized distal internal carotid, anterior and middle cerebral a rteries. There is a normal anterior communicating artery complex. There are bilateral posterior com municating arteries. The vertebral, basilar, cerebellar and posterior cerebral arteries are within n ormal limits. The early parenchymal enhancement is grossly unremarkable. The visualized intracrania l venous structures are grossly unremarkable. CTA neck: The visualized thoracic aortic arch and proximal great vessels are unremarkable. The left common, in ternal and external carotid arteries are within normal limits. 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 The cervical segments of the right and left vertebral arteries are within normal limits. The limited visualized lung apices are clear. The surrounding so ft tissues and osseous structures are otherwise unremarkable. 5 mm right thyroid nodule. IMPRESSION: No evidence of acute intracranial hemorrhage, mass effect or hydrocephalus. No evidence of hemodynamically significant intracranial stenosis, proximal occlusion or aneurysm. No evidence of hemodynamically significant cervical stenosis or dissection. 5 mm right thyroid nodule. CAROTID STENOSIS REFERENCE Distal internal carotid artery diameter as the denominator for stenosis measurement: MILD = <50% stenosis. MODERATE = 50-69% stenosis. SEVERE = 70-89% stenosis. CRITICAL = 90-99% stenosis. OCCLUDED = 100% stenosis.
--- NOTE | 2025-04-09 06:44 | ECG ---
[facility] Test Date: 2025-04-09 Test Time: 03:07:14 Pat Name: BERNADETTE ZARATE Department: [facility] ED Patient ID: [facility]-[id number] Room: [address] [place] [address] Gender: F Material Expeditor: CLARE : 1975 Requested By: MIROSLAVA MCDONOUGH Order Number: [id number] Reading MD: Ron Christine Measurements Intervals [place] Rate: 66 P: 13 AR: 126 QRS: 72 QRSD: 118 T: 27 QT: 435 QTc: 456 Interpretive Statements Sinus rhythm Nonspecific intraventricular conduction delay Electronically Signed On 04-15-2025 17:20:39 PDT by Ron Christine Please click the below link to view image of tracing.
[2025-04-09] MEDS: IOHEXOL 350 MG/ML 100ML IJ ONE (07:31)
[2025-04-09] MEDS: POTASSIUM CHL 20 Meq TABLET PO ONE (07:36)
[2025-04-09] MEDS: POTASSIUM CHL 20MEQ/100ML 100 ML IV ONE (09:09)
[2025-04-09] MEDS ORDERED: ACETAMINOPHEN 325 MG TAB PO PRN (10:30)
[2025-04-09] MEDS ORDERED: NITROGLYCERIN 0.4 MG SL TAB SL PRN (10:30)
[2025-04-09] MEDS ORDERED: ONDANSETRON HCL 4 MG/2 ML VIAL IV PRN (10:30)
[2025-04-09] MEDS ORDERED: MORPHINE SULFATE INJ 2 MG/ml SYRG IV PRN (10:30)
[2025-04-09] MEDS ORDERED: GABA-1250 PO (10:42)
[2025-04-09] MEDS ORDERED: OXYB5TAB14 GT (10:42)
--- NOTE | 2025-04-09 11:19 | DVHHP2 ---
History of Present Illness Reason for Visit: Right sided numbness and tingling History of Present Illness Itzel Feng is a 49-year-old female with a past medial history of anxiety, hypertension, and hyperlipidemia, who came to the hospital due to numbness and tingling in her right hand and foot. Patient states she woke up about 0200 with numbness and tingling on the right side of her body. She also states she was having neck pain and chest pressure. She went to stand up to get out of bed, but fell back down due to the numbness and tingling on her right side. She states it went from her toes all the way up her body. She has a history of waking up with numbness and tingling on bilateral hands and feet for which she is seeing a neurologist. She has an appointment today to get results from nerve testing that was completed. She was previously told by her neurologist that he is 98% sure that it is coming from her neck, but wanted to complete testing. She became scared because it was her entire right side of her body that felt this way and it was not 100% improving. On assessment she continues to compline of some numbness and tingling of her right foot and right hand. Denies any chest pressure or pain, or shortness of breath. Cardiovascular: HTN, hyperipidemia Psych: Anxiety Past Surgical History: Cholecystectomy, Other (uterine ablation) Smoke: No ALCOHOL: none Drugs: None Lives: with Family Domestic Violence: Neg Review of Systems Constitutional: No: Fever, Chills, Sweats, Weakness, Malaise, Other Eyes: No: Pain, Vision change, Conjunctivae inflammation, Eyelid inflammation, Other, Redness ENT: No: Ear pain, Ear discharge, Nose pain, Nose discharge, Nose congestion, Mouth pain, Mouth swelling, Throat pain, Throat swelling, Other Respiratory: No: Cough, Dry, Shortness of breath, SOB with excertion, Wheezing, Hemoptysis, Pleuritic Pain, Sputum, Wheezing, Other Cardiovascular: Chest Pain (Chest pressure); No: Palpitations, Orthopnea, Paroxysmal Noc. Dyspnea, Edema, Lt Headedness, Other Gastrointestinal: No: Nausea, Vomiting, Abdominal Pain, Diarrhea, Constipation, Melena, Hematochezia, Other Genitourinary: No Dysuria, No Frequency, No Incontinence, No Hematuria, No Retention, No Other Musculoskeletal: neck pain; No: other, shoulder pain, arm pain, back pain, hand pain, leg pain, foot pain Skin: No: Rash, Lesions, Jaundice, Bruising, Other Neurological: Numbness (tingling of right side of body); No: Weakness, Incoordination, Change in speech, Confusion, Seizures, Other Allergies: Coded Allergies: NO KNOWN ALLERGIES (Unverified , 06/11/24) Exam Vital Signs Vital Signs Date Time Temp Pulse Resp B/P (MAP) Pulse Ox O2 Delivery O2 Flow Rate FiO2 04/09/25 07:38 97.9 74 18 130/83 (99) 97 97.9 General Appearance: Alert, Oriented X3, Cooperative, mild distress HEENT: Atraumatic, PERRLA Respiratory: Clear to auscultation, Normal air movement Cardiovascular: Regular rate, Normal S1, Normal S2, No murmurs Abdominal: Normal bowel sounds, Soft, No tenderness, No hepatospenomegaly Extremities: No clubbing, No cyanosis, No edema, Normal pulses, No tenderness/swelling Skin: No rashes, No breakdown, No significant lesion Neuro: Normal gait, Normal speech, Strength at 5/5 X4 ext, Normal tone Psych/Mental Status: Mental status NL, Mood NL Labs/Xrays Labs Test 04/09/25 04:28 04/09/25 03:13 Range/Units Troponin I High Sensitivity < 3 L </=34 ng/L White Blood Count 9.9 4.4-10.8 10^3/uL Red Blood Count 5.23 H 4.0-5.20 10^6/uL Hemoglobin 15.7 12.2-16.2 g/dL Hematocrit 45.2 36.0-46.0 % Mean Corpuscular Volume 86.5 80.0-100.0 fL Mean Corpuscular Hemoglobin 30.1 28.0-32.0 pg Mean Corpuscular Hemoglobin Concent 34.8 32.0-36.0 g/dL Red Cell Distribution Width 14.0 11.8-14.3 % Platelet Count 295 140-450 10^3/uL Mean Platelet Volume 8.4 6.9-10.8 fL Neutrophils (%) (Auto) 55.6 37.0-80.0 % Lymphocytes (%) (Auto) 34.1 10.0-50.0 % Monocytes (%) (Auto) 7.3 0.0-12.0 % Eosinophils (%) (Auto) 2.0 0.0-7.0 % Basophils (%) (Auto) 1.0 0.0-2.0 % Neutrophils # (Auto) 5.5 1.6-8.6 10 ^3/uL Lymphocytes # (Auto) 3.4 0.4-5.4 10 ^3/uL Monocytes # (Auto) 0.7 0-1.3 10 ^3/uL Eosinophils # (Auto) 0.2 0-0.8 10 ^3/uL Basophils # (Auto) 0.1 0-0.2 10 ^3/uL Nucleated Red Blood Cells 0.0 % Sodium Level 141 136-145 mmol/L Potassium Level 3.0 L 3.5-5.1 mmol/L Chloride Level 104 98-107 mmol/L Carbon Dioxide Level 26 20-31 mmol/L Anion Gap 11 5-15 Blood Urea Nitrogen 10 9-23 mg/dL Creatinine 0.61 0.550-1.02 mg/dL Glomerular Filtration Rate Calc 110 >90 mL/min BUN/Creatinine Ratio 16.4 10.0-20.0 Serum Glucose 90 74-106 mg/dL Calcium Level 9.4 8.7-10.4 mg/dL B-Type Natriuretic Peptide 15.73 0-100 pg/mL CHEST RADIOGRAPH IMPRESSION: Heart appears normal in size. The lungs appear clear without focal airspace opacity, effusion, or pneumothorax TECHNIQUE: CTA head without and with intravenous contrast. CTA neck with intravenous contrast. FINDINGS: CT head: There is no evidence of acute intracranial hemorrhage, extra-axial collection, mass effect, midline shift, herniation or hydrocephalus. The ventricles, sulci and cisterns are age appropriate. The escalante-white differentiation is intact. The visualized paranasal sinuses and mastoid air cells are clear. The surrounding soft tissues and osseous structures are unremarkable. CTA head: There is normal enhancement of the visualized distal internal carotid, anterior and middle cerebral arteries. There is a normal anterior communicating artery complex. There are bilateral posterior communicating arteries. The vertebral, basilar, cerebellar and posterior cerebral arteries are within normal limits. The early parenchymal enhancement is grossly unremarkable. The visualized intracranial venous structures are grossly unremarkable. CTA neck: The visualized thoracic aortic arch and proximal great vessels are unremarkable. The left common, internal and external carotid arteries are within normal limits. The right common, internal and external carotid arteries are within normal limits. The cervical segments of the right and left vertebral arteries are within normal limits. The limited visualized lung apices are clear. The surrounding soft tissues and osseous structures are otherwise unremarkable. 5 mm right thyroid nodule. IMPRESSION: No evidence of acute intracranial hemorrhage, mass effect or hydrocephalus. No evidence of hemodynamically significant intracranial stenosis, proximal occlusion or aneurysm. No evidence of hemodynamically significant cervical stenosis or dissection. 5 mm right thyroid nodule. SEPSIS Sepsis Screen Date sepsis recognized/suspect: Apr 09, 2025 Time Sepsis recognized/suspect: 316 Recent Procedure: No On Antibiotic Therapy: No Respiratory Rate >20: No Heart Rate >90: No Temp<36 C (96.8 F) or >38.3 C: No SBP <90 or MAP <65 mmHG: No New Acute Mental Status Change: No Is the patient on CPAP, BIPAP,: No Physician Orders Electrocardigram (04/09/25 04:01) Electrocardigram (04/09/25 06:01) Chest Xray 1 View (04/09/25 03:02) Vital Signs Q1HR (04/09/25 03:02) Electrocardigram (04/09/25 03:02) Electrocardigram (04/09/25 04:02) Electrocardigram (04/09/25 06:02) Head Without Contrast (04/09/25 03:33) Angio Head/Neck (04/09/25 03:33) * Neurology Consult (04/09/25 09:07) Admit (04/09/25 10:16) Code Status (04/09/25 10:16) 2 Gm Sodium Diet (04/09/25 Lunch) Hydrocodone-Acet 5/325mg Tab ([place] (04/09/25 10:30) Vital Signs Date Time Temp Pulse Resp B/P (MAP) Pulse Ox O2 Delivery O2 Flow Rate FiO2 04/09/25 07:38 97.9 74 18 130/83 (99) 97 97.9 04/09/25 05:33 66 04/09/25 03:13 98.2 72 18 126/67 94 98.2 04/09/25 03:07 66 Laboratory Tests Test 04/09/25 03:13 White Blood Count 9.9 10^3/uL (4.4-10.8) Medications Medications Dose Ordered Sig/[place] Route Start Time Stop Time Status Last Admin Dose Admin Aspirin 324 mg ONCE ONCE PO 04/09/25 03:45 04/09/25 03:46 DC 04/09/25 09:09 324 MG Potassium Chloride 40 meq ONCE ONCE PO 04/09/25 05:15 04/09/25 05:17 DC 04/09/25 07:36 40 MEQ Assessment/Plan Assessment/Plan Assessment: Paresthesia and pain of right extremity, Thyroid nodule, Hypokalemia, Hypertension, Hyperlipidemia, Plan: Admit to Tele, Neurology consult, TSH, Manage/Monitor electrolytes closely, Home medications reconciled, Plan discussed with: Patient My Orders Orders - ARA SHOOK Procedure Category Date Status Time * Neurology Consult CONS 04/09/25 Transmitted 09:07 Admit ADMIT 04/09/25 Verified 10:16 Code Status CODE 04/09/25 Verified 10:16 2 Gm Sodium Diet DIET 04/09/25 Verified Lunch Hydrocodone-Acet PHA 04/09/25 Verified 5/325mg Tab ([place] 10:30 Date of Service: Apr 09, 2025 Billing Provider: ARA SHOOK Common Visit Codes: [id number] INP/OBS CARE (MOD) ARA SHOOK Apr 09, 2025 11:19
[2025-04-09] MEDS: hydroCHLOROthiazide 25 MG TAB PO SCH (11:39)
[2025-04-09 17:41] LABS: Potassium 3.7 mmol/L (3.5-5.1)
[2025-04-09 17:48] LABS: Magnesium 2.2 mg/dL (1.6-2.6)
[2025-04-09] MEDS: HYDROcodone-ACET 5/325MG TAB PO PRN (20:27)
[2025-04-09] MEDS: FAMOTIDINE 20 MG TAB PO SCH (20:27)
[2025-04-09] MEDS: ATORVASTATIN 20 MG TAB PO SCH (20:27)
[2025-04-09 21:05] VITALS: BP 126/93; PULSE 73; RESP 17; TEMP 98; O2SAT 96
[2025-04-09 22:25] VITALS: BP 134/82; PULSE 69; RESP 18; TEMP 98; O2SAT 95
[2025-04-10 01:00] VITALS: BP 134/82; PULSE 69; RESP 18; TEMP 98; O2SAT 95
[2025-04-10 05:00] VITALS: BP 104/67; PULSE 74; RESP 18; TEMP 97.7; O2SAT 95
[2025-04-10 06:17] LABS: Hematocrit 43.7 % (36.0-46.0); Hemoglobin 15.3 g/dL (12.2-16.2); Mean Corpuscular Hemoglobin 30.3 pg (28.0-32.0); Mean Corpuscular Volume 86.5 fL (80.0-100.0); Nucleated Red Blood Cells % 0.0 %
[2025-04-10 06:30] LABS: Albumin 4.4 g/dL (3.2-4.8); Alkaline Phosphatase 76 U/L (46-116); Anion Gap 10 (5-15); BUN/Creatinine Ratio 10.8 (10.0-20.0); Calcium 9.2 mg/dL (8.7-10.4); Carbon Dioxide 27 mmol/L (20-31); Chloride 104 mmol/L (98-107); Glucose 81 mg/dL (74-106); Sodium 141 mmol/L (136-145); Total Protein 6.5 g/dL (5.7-8.2)
[2025-04-10 06:31] LABS: Bilirubin, Total 0.6 mg/dL (0.2-1.0)
[2025-04-10 06:35] LABS: Alanine Aminotransferase 134 U/L (7-40); Blood Urea Nitrogen 7 mg/dL (9-23); Potassium 3.0 mmol/L (3.5-5.1)
[2025-04-10 08:00] VITALS: PULSE 54
[2025-04-10 09:00] VITALS: BP 89/52; PULSE 61; RESP 18; TEMP 98.3; O2SAT 93
[2025-04-10] MEDS: OXYBUTYNIN CHL 5 MG TAB GT SCH (09:19)
[2025-04-10] MEDS: DOCUSATE SOD 100 MG CAP PO PRN (09:31)
[2025-04-10] MEDS: LOSARTAN POTASSIUM 25 MG TAB PO SCH (09:33)
[2025-04-10] MEDS ORDERED: OXYBUTYNIN CHL 5 MG TAB PO SCH (10:00)
[2025-04-10 13:00] VITALS: BP 112/69; PULSE 72; RESP 18; TEMP 98.2; O2SAT 95
--- NOTE | 2025-04-10 14:30 | DVHPN2 ---
Reviewed: Care Plan, H&P, Labs, Medications, Previous Orders, Radiology Changes from previous H/P or p: No Changes Eyes: No Pain, No Vision change, No Conjunctivae inflammation, No Eyelid inflammation, No Other, No Redness ENT: No Ear pain, No Ear discharge, No Nose pain, No Nose discharge, No Nose congestion, No Mouth pain, No Mouth swelling, No Throat pain, No Throat swelling, No Other Cardiovascular: Chest Pain (Chest pressure); No Palpitations, No Orthopnea, No Paroxysmal Noc. Dyspnea, No Edema, No Lt Headedness, No Other Respiratory: No Cough, No Dry, No Shortness of breath, No SOB with excertion, No Wheezing, No Hemoptysis, No Pleuritic Pain, No Sputum, No Other Gastrointestinal: No Nausea, No Vomiting, No Abdominal Pain, No Diarrhea, No Constipation, No Melena, No Hematochezia, No Other Genitourinary: No Dysuria, No Frequency, No Incontinence, No Hematuria, No Retention, No Other Musculoskeletal: No other; neck pain; No shoulder pain, No arm pain, No back pain, No hand pain, No leg pain, No foot pain Skin: No Rash, No Lesions, No Jaundice, No Bruising, No Other Objective Vitals Vital Signs Date Time Temp Pulse Resp B/P (MAP) Pulse Ox O2 Delivery O2 Flow Rate FiO2 04/10/25 13:00 98.2 72 18 112/69 (83) 95 98.2 04/10/25 08:00 Room Air* 0 21 Intake/Output Intake and Output 04/10/25 07:00 Intake Total 0 ml Balance 0 ml Intake Oral 0 ml Medications Current Medications Medications Dose Ordered Sig/[place] Route Start Time Stop Time Status Last Admin Dose Admin Acetaminophen/ Hydrocodone Bitart 1 tab Q4HP PRN PO 04/09/25 10:30 04/09/25 20:27 1 TAB Ondansetron HCl 4 mg Q4HP PRN IV 04/09/25 10:30 Docusate Sodium 100 mg BIDPRN PRN PO 04/09/25 10:30 04/10/25 09:31 100 MG Acetaminophen 650 mg Q6HP PRN PO 04/09/25 10:30 Nitroglycerin 0.4 mg Q5MINP PRN SL 04/09/25 10:30 Morphine Sulfate 2 mg Q30M PRN IV 04/09/25 10:30 Atorvastatin Calcium 20 mg HS PO 04/09/25 22:00 04/09/25 20:27 20 MG Famotidine 20 mg BID PO 04/09/25 22:00 04/10/25 09:20 20 MG Hydrochlorothiazide 25 mg DAILY PO 04/09/25 10:45 04/10/25 09:33 25 MG Losartan Potassium 25 mg DAILY PO 04/10/25 10:00 04/10/25 09:33 25 MG Oxybutynin Chloride 5 mg DAILY PO 04/10/25 10:00 UNV Trazodone HCl 50 mg HS PO 04/09/25 22:00 04/09/25 21:22 50 MG Oxybutynin Chloride 5 mg DAILY GT 04/10/25 10:00 04/10/25 09:19 5 MG Laboratory Results Laboratory Tests 04/10/25 05:29 Chemistry Test 04/09/25 17:19 04/10/25 05:29 Magnesium Level 2.2 mg/dL (1.6-2.6) Albumin 4.4 g/dL (3.2-4.8) Calcium Level 9.2 mg/dL (8.7-10.4) Total Protein 6.5 g/dL (5.7-8.2) LFT Test 04/10/25 05:29 Alanine Aminotransferase (ALT) 134 U/L (7-40) H Alkaline Phosphatase 76 U/L (46-116) Aspartate Amino Transferase (AST) 147 U/L (13-40) H Total Bilirubin 0.6 mg/dL (0.2-1.0) Labs and/or images reviewed: Labs reviewed by me, Image(s) reviewed by me Assessment/Plan Assessment/Plan Paresthesia and pain of right extremities, CT head negative CT angiogram head and neck negative, neurology consult for Dr. Christina Thyroid nodule, Hypokalemia, Hypertension, Hyperlipidemia, History of anxiety: Continue home medications trazodone Plan discussed with: Patient Date of Service: Apr 10, 2025 Billing Provider: HOSSEIN PRATER MD Common Visit Codes: [id number] INP/OBS CARE(HIGH) HOSSEIN PRATER MD Apr 10, 2025 14:30
--- NOTE | 2025-04-11 07:53 | DVHDS2 ---
Discharge Summary Date of Admission Apr 09, 2025 at 10:16 Date of Discharge: Apr 11, 2025 Admitting Diagnosis Dizziness and numbness in the right upper and lower extremities Wounds: None Labs/Diagnostic Data: Laboratory Results Test 04/10/25 05:29 04/09/25 17:19 04/09/25 04:28 04/09/25 03:13 White Blood Count 7.0 10^3/uL (4.4-10.8) Red Blood Count 5.05 10^6/uL (4.0-5.20) Hemoglobin 15.3 g/dL (12.2-16.2) Hematocrit 43.7 % (36.0-46.0) Mean Corpuscular Volume 86.5 fL (80.0-100.0) Mean Corpuscular Hemoglobin 30.3 pg (28.0-32.0) Mean Corpuscular Hemoglobin Concent 35.1 g/dL (32.0-36.0) Red Cell Distribution Width 13.9 % (11.8-14.3) Platelet Count 269 10^3/uL (140-450) Mean Platelet Volume 8.7 fL (6.9-10.8) Neutrophils (%) (Auto) 63.1 % (37.0-80.0) Lymphocytes (%) (Auto) 24.4 % (10.0-50.0) Monocytes (%) (Auto) 9.5 % (0.0-12.0) Eosinophils (%) (Auto) 2.0 % (0.0-7.0) Basophils (%) (Auto) 1.0 % (0.0-2.0) Neutrophils # (Auto) 4.4 10 ^3/uL (1.6-8.6) Lymphocytes # (Auto) 1.7 10 ^3/uL (0.4-5.4) Monocytes # (Auto) 0.7 10 ^3/uL (0-1.3) Eosinophils # (Auto) 0.1 10 ^3/uL (0-0.8) Basophils # (Auto) 0.1 10 ^3/uL (0-0.2) Nucleated Red Blood Cells 0.0 % Sodium Level 141 mmol/L (136-145) Potassium Level 3.0 mmol/L (3.5-5.1) Chloride Level 104 mmol/L (98-107) Carbon Dioxide Level 27 mmol/L (20-31) Anion Gap 10 (5-15) Blood Urea Nitrogen 7 mg/dL (9-23) Creatinine 0.65 mg/dL (0.550-1.02) Glomerular Filtration Rate Calc 109 mL/min (>90) BUN/Creatinine Ratio 10.8 (10.0-20.0) Serum Glucose 81 mg/dL (74-106) Calcium Level 9.2 mg/dL (8.7-10.4) Total Bilirubin 0.6 mg/dL (0.2-1.0) Aspartate Amino Transferase (AST) 147 U/L (13-40) Alanine Aminotransferase (ALT) 134 U/L (7-40) Alkaline Phosphatase 76 U/L (46-116) Total Protein 6.5 g/dL (5.7-8.2) Albumin 4.4 g/dL (3.2-4.8) Magnesium Level 2.2 mg/dL (1.6-2.6) Troponin I High Sensitivity < 3 ng/L (</=34) B-Type Natriuretic Peptide 15.73 pg/mL (0-100) Thyroid Stimulating Hormone (TSH) 2.81 uIU/mL (0.55-4.78) Other Laboratory Tests 04/10/25 05:29 Brief Hx & Hospital Course: 49-year-old female with a history of hypertension hypercholesterolemia anxiety taken trazodone came in complaining of paresthesia and pain of the right upper and lower extremities. Labs normal CT head negative CT angiogram head and neck negative Neurology consult for Dr. Christina pending. Patient decided to leave AMA while awaiting further evaluation and left AMA. Consequences and complications explained to the patient and she verbalized understanding. Symptoms possibly related to the anxiety Consults/Reason for consult Neurology consult pending patient left AMA Operations or Procedures CT head CT angiogram head and neck Condition at Discharge: Fair Final Diagnosis/Problems List Paresthesia and pain of right extremities, CT head negative CT angiogram head and neck negative, neurology consult for Dr. Christina Thyroid nodule, Hypokalemia, Hypertension, Hyperlipidemia, History of anxiety: Continue home medications trazodone Discharge Disposition: AMA Discharge Instruct/Medications Diet comment: Not applicable Patient left AMA Activity comment: Not applicable Patient left AMA Follow Up/Referral: Not applicable Patient left AMA Medications: Not applicable Patient left AMA Scheduled Atorvastatin Calcium (Atorvastatin Calcium), 1 DAILY, (Reported) Famotidine (Famotidine), 1 TAB PO BID, (Reported) Gabapentin (Gabapentin), 1 CAP PO HS, (Reported) Hctz (Hydrochlorothiazide), 1 DAILY, (Reported) Losartan Potassium (Losartan Potassium), 25 MG PO DAILY Oxybutynin Chloride (Oxybutynin Chloride), 5 MG PO DAILY, (Reported) Oxybutynin Chloride (Oxybutynin Chloride), 5 MG GT DAILY, (Reported) Scheduled PRN Acetaminophen (Acetaminophen), 500 MG PO Q4HP PRN Hydroxyzine HCl (Hydroxyzine Hydrochloride), 50 MG PO Q6HP PRN Miscellaneous Medications Trazodone Hcl (Trazodone Hcl), 1 TAB PO, (Reported) Discontinued Medications Dicyclomine Hcl (Bentyl Capsule), 1 CAP PO Q6HPRN 35 (Time taken for discharge summary 35 minutes) Discharge Statement: "Patient was advised to return to the ER or call 911 if any headaches, dizziness, shortness of breath, chest pain, abdominal pain, bleeding, fevers, or worsening of medical condition. Patient was counseled about treatment plan, medications, possible side effects, patientverbalized understanding. All questions were answered to the best of my ability. This discharge took greater then 30 minutes in planning, reviewing documentation, counseling the patient, and discussing with other team members." ASSESSMENT ASSESSMENT Hospital Course Left AMA Assessment Date of Service: Apr 11, 2025 Billing Provider: HOSSEIN PRATER MD Common Visit Codes: [id number] DISCH DAY >30min HOSSEIN PRATER MD Apr 11, 2025 07:53
== END 2025-04-10 16:05 | disposition left against medical advice (07) | DRG 756 ==
LOC: ER 03:00 → OVERFLOW 10:16 → TELE-EAST 22:25
PROVIDERS: ADMIT Family Medicine; ATTEND Family Medicine
DX: F41.9 Anxiety disorder, unspecified (principal); E04.1 Nontoxic single thyroid nodule; R20.2 Paresthesia of skin; I10 Essential (primary) hypertension; E87.6 Hypokalemia; E78.00 Pure hypercholesterolemia, unspecified; M54.2 Cervicalgia; Z53.29 Procedure and treatment not carried out because of patient's decision for other reasons; Z90.710 Acquired absence of both cervix and uterus; Z90.49 Acquired absence of other specified parts of digestive tract
CPT/HCPCS: 36415; 70450; 70496; 70498; 71045; 80048; 80053; 83735; 83880; 84132; 84443; 84484; 85025; 93005; G0378